=== PATIENT | female | born 1935 | race Caucasian/White ===

== ENCOUNTER 2019-01-01 11:07 | Emergency (ER) | payer MEDICARE, OTHER ==
[~2019-01-01] VITALS: Ht 154.9 cm; Wt 113.6 kg
--- NOTE | 2019-01-01 11:49 | ED General ---
General Chief Complaint: Trauma-Non Activation Stated Complaint: FALL Nursing Triage Note: Right back/rib pain, right leg pain. Nursing Sepsis Screen: No Definite Risk History of Present Illness Date Seen by Provider: Jan 01, 2019 Time Seen by Provider: 11:45 Initial Comments Patient presenting to the emergency department for evaluation of a fall. She has extensive medical history including dementia CHF diabetes and just moved here 2 weeks ago from [place]. She was living with another daughter in the area and then for unclear reason she was relocated here. This morning she was f ound on the floor covered in her own urine and was unable to get up on her own. Family was able to get her to the shower and then they decided to bring her here. She uses a walker to ambulate however family is saying that her weakness is more significant in her right lower extremity and this is something new in onset they first noted this morning when they found her. Her last known well would be sometime yesterday. I'm not completely convinced that this is new onset weakness that she is weak in her bilateral lower extremities and can barely hold either one of them up off the bed for more than one second. She lives by herself at this time and I asked patient if she feels safe and she says yes and I asked family if this is a reasonable plan and they think they can take care of her but they cannot take care of her in this condition currently. Allergies and Home Medications Allergies Coded Allergies: No Known Drug Allergies (Unverified , 01/01/19) Patient Home Medication List Home Medication List Reviewed: Yes Review of Systems Review of Systems Constitutional: no symptoms reported EENTM: no symptoms reported Respiratory: no symptoms reported Cardiovascular: no symptoms reported Gastrointestinal: no symptoms reported Genitourinary: no symptoms reported Musculoskeletal: back pain, joint pain Skin: no symptoms reported Psychiatric/Neurological: No Symptoms Reported All Other Systems Reviewed Negative Unless Noted: Yes Past Cfplivc-Zyfdqj-Zmkquy Hx Patient Social History Alcohol Use: Denies Use Recreational Drug Use: No Smoking Status: Never a Smoker 2nd Hand Smoke Exposure: No Recent Foreign Travel: No Contact w/Someone Who Travel: No Recent Infectious Disease Expo: No Recent Hopitalizations: No Physical Abuse: No Sexual Abuse: No Mistreated: No Fear: No Seasonal Allergies Seasonal Allergies: No Past Medical History Surgeries: Yes Defibrillator, Pacemaker Respiratory: No Cardiac: Yes Chronic Edema/Swelling Neurological: Yes Dementia Genitourinary: Yes (CKD stage 3) Kidney Stones, Renal Failure Gastrointestinal: Yes Diverticulosis Musculoskeletal: Yes (osteoarthritis, DJD right hip) Endocrine: Yes Diabetes, Non-Insulin dep HEENT: No Cancer: No Psychosocial: No Integumentary: No Physical Exam Vital Signs Vital Signs - First Documented Capillary Refill : Less Than 3 Seconds Height, Weight, BMI Height: '" Weight: lbs. oz. kg; 47.00 BMI Method: General Appearance: Chronically ill HEENT: PERRL/EOMI Neck: Supple, Tender Midline Respiratory: No Respiratory Distress Cardiovascular: Regular Rate, Rhythm Gastrointestinal: Non Tender, Soft Rectal: Deferred Back: Vertebral Tenderness (thoracic and lumbar region) Extremity: Normal Capillary Refill Neurologic/Psychiatric: Alert, Disoriented, Other (right lower extremity may be slightly weaker than the left however she cannot hold either lower extremity up off the bed for more than one second.) Skin: Warm/Dry Progress/Results/Core Measures Suspected Sepsis Recent Fever Within 48 Hours: No Infection Criteria Present: None New/Unexplained Altered Menta: No Sepsis Screen: No Definite Risk SIRS Temperature: Pulse: 65 Respiratory Rate: 22 Laboratory Tests 01/01/19 11:37: White Blood Count 15.8H Blood Pressure 115 /52 Mean: 73 Laboratory Tests 01/01/19 11:37: Creatinine 1.27, INR Comment 1.0, Platelet Count 222, Total Bilirubin 1.0 Results/Orders Lab Results Laboratory Tests Test 01/01/19 11:37 01/01/19 12:30 Range/Units White Blood Count 15.8 H 4.3-11.0 10^3/uL Red Blood Count 4.71 4.35-5.85 10^6/uL Hemoglobin 13.9 11.5-16.0 G/DL Hematocrit 43 35-52 % Mean Corpuscular Volume 90 80-99 FL Mean Corpuscular Hemoglobin 30 25-34 PG Mean Corpuscular Hemoglobin Concent 33 32-36 G/DL Red Cell Distribution Width 13.3 10.0-14.5 % Platelet Count 222 130-400 10^3/uL Mean Platelet Volume 11.5 H 7.4-10.4 FL Neutrophils (%) (Auto) 84 H 42-75 % Lymphocytes (%) (Auto) 10 L 12-44 % Monocytes (%) (Auto) 5 0-12 % Eosinophils (%) (Auto) 0 0-10 % Basophils (%) (Auto) 1 0-10 % Neutrophils # (Auto) 13.2 H 1.8-7.8 X 10^3 Lymphocytes # (Auto) 1.6 1.0-4.0 X 10^3 Monocytes # (Auto) 0.8 0.0-1.0 X 10^3 Eosinophils # (Auto) 0.0 0.0-0.3 10^3/uL Basophils # (Auto) 0.1 0.0-0.1 10^3/uL Neutrophils % (Manual) 76 % Lymphocytes % (Manual) 12 % Monocytes % (Manual) 6 % Basophils % (Manual) 1 % Band Neutrophils 5 % Blood Morphology Comment NORMAL Prothrombin Time 13.6 12.2-14.7 SEC INR Comment 1.0 0.8-1.4 Activated Partial Thromboplast Time 25 24-35 SEC Sodium Level 139 135-145 MMOL/L Potassium Level 3.3 L 3.6-5.0 MMOL/L Chloride Level 96 L 98-107 MMOL/L Carbon Dioxide Level 26 21-32 MMOL/L Anion Gap 17 H 5-14 MMOL/L Blood Urea Nitrogen 25 H 7-18 MG/DL Creatinine 1.27 0.60-1.30 MG/DL Estimat Glomerular Filtration Rate 40 BUN/Creatinine Ratio 20 Glucose Level 228 H 70-105 MG/DL Calcium Level 8.9 8.5-10.1 MG/DL Corrected Calcium 8.9 8.5-10.1 MG/DL Magnesium Level 1.7 1.6-2.4 MG/DL Total Bilirubin 1.0 0.1-1.0 MG/DL Aspartate Amino Transf (AST/SGOT) 21 5-34 U/L Alanine Aminotransferase (ALT/SGPT) 14 0-55 U/L Alkaline Phosphatase 54 40-136 U/L Troponin I < 0.30 <0.30 NG/ML Pro-B-Type Natriuretic Peptide 90385.0 H <75.0 PG/ML Total Protein 6.8 6.4-8.2 GM/DL Albumin 4.0 3.2-4.5 GM/DL Urine Color YELLOW Urine Clarity CLOUDY Urine pH 7.0 5-9 Urine Specific [place] 1.025 H 1.016-1.022 Urine Protein 2+ H NEGATIVE Urine Glucose (UA) NEGATIVE NEGATIVE Urine Ketones NEGATIVE NEGATIVE Urine Nitrite NEGATIVE NEGATIVE Urine Bilirubin NEGATIVE NEGATIVE Urine Urobilinogen 0.2 NORMAL MG/DL Urine Leukocyte Esterase 3+ H NEGATIVE Urine RBC (Auto) 2+ H NEGATIVE Urine RBC 10-25 H /HPF Urine WBC >100 H /HPF Urine Squamous Epithelial Cells NONE /HPF Urine Crystals NONE /LPF Urine Bacteria LARGE H /HPF Urine Casts NONE /LPF Urine Mucus NEGATIVE /LPF Urine Culture Indicated YES My Orders Orders - GINO ALFRED DO Cbc With Automated Diff (01/01/19 11:21) Comprehensive Metabolic Panel (01/01/19 11:21) Magnesium (01/01/19 11:21) Partial Thromboplastin Time (01/01/19 11:21) Protime With Inr (01/01/19 11:21) Probnp Fs (01/01/19 11:21) Troponin I (01/01/19 11:21) Ua Culture If Indicated (01/01/19 11:21) Ekg Tracing (01/01/19 11:21) Knee 3 View Bilateral (01/01/19 11:21) Ankle 3 View Right (01/01/19 11:21) Ct Head/Cervical Spine Wo (01/01/19 11:21) Ct Thoracic/Lumbar Spine Wo (01/01/19 11:21) Pelvis/Sukhdev Hips 2 View (01/01/19 11:21) Manual Differential (01/01/19 11:37) Chest 1 View Ap/Pa Only (01/01/19 12:28) Urine Culture (01/01/19 12:30) Blood Culture (01/01/19 12:48) Lactic Acid Analyzer (01/01/19 12:48) Ceftriaxone For Iv Use (Rocephin For I (01/01/19 13:00) Creatine Kinase (01/01/19 12:57) Vital Signs/I&O 01/01/19 01/01/19 11:15 11:15 Temp 37.2 37.2 Pulse 65 65 Resp 22 22 B/P (MAP) 115/52 (73) 115/52 (73) Pulse Ox 93 93 O2 Delivery Room Air Room Air Capillary Refill : Less Than 3 Seconds Blood Pressure Mean: 73 Progress Note : Progress Note Patient is in quite poor health, on workup was found that she has leukocytosis with signs of a urinary tract infection. She is having some hallucinations of seeing cats tight years and other animals on the springer in the room. She technically does not meet sepsis criteria by Sirs however by Q sofa with her altered mental status she would meet sepsis criteria. On the other hand she does have underlying dementia and the surgery tract infection dismay making her mental status worse. Patient is nontoxic appearing and her vital signs are normal with her latest vital signs being heart rate of 60 and blood pressure of 126/74. She does not require pressors or aggressive fluids or treatment. She does have underlying congestive heart failure and I discussed aggressive fluids with family and they agreed with low volume resuscitation given high volumes could make her cardiac and pulmonary function worse. Blood cultures lactate and CPK are all ordered and she'll be started on Rocephin. I will replace her potassium. I looked at all for CT imaging and did not see any gross abnormalities however there is an issue with the radiology software and it cannot be sent to the radiologist and [place] at this time. I spoke to Dr. Gonzales given patient was going to establish at [facility] today and Dr. Gonzales is willing to accept patient [facility] as they have further geriatric psych and full capabilities there. She prefers to have the patient there as there is limited to no benefit available at [place]. Patient will be transferred in stable condition via EMS to [facility]. All questions answered to the best of my ability to her 3 family members that were present. Departure Impression Primary Impression: Acute encephalopathy Additional Impressions: UTI (urinary tract infection) General weakness Hypokalemia Leukocytosis Disposition: 02 XFER SHT-TRM HOSP Condition: Stable Departure-Patient Inst. Referrals: NO,LOCAL PHYSICIAN (PCP/Family) Primary Care Physician GINO ALFRED DO Jan 01, 2019 11:49
[2019-01-01 12:01] LABS: BASOPHILS % (AUTO) 1 % (0-10); EOSINOPHILS % (AUTO) 0 % (0-10); HEMATOCRIT 43 % (35-52); HEMOGLOBIN 13.9 G/DL (11.5-16.0); LYMPHOCYTES % (AUTO) 10 % (12-44); MEAN CORPUSCULAR HEMOGLOBIN 30 PG (25-34); MEAN CORPUSCULAR HGB CONC 33 G/DL (32-36); MEAN CORPUSCULAR VOLUME 90 FL (80-99); MEAN PLATELET VOLUME 11.5 FL (7.4-10.4); MONOCYTES % (AUTO) 5 % (0-12); NEUTROPHILS % (AUTO) 84 % (42-75); PLATELET COUNT 222 10^3/uL (130-400); RED CELL DISTRIBUTION WIDTH 13.3 % (10.0-14.5); WHITE BLOOD COUNT 15.8 10^3/uL (4.3-11.0)
[2019-01-01 12:02] LABS: BASOPHILS # (AUTO) 0.1 10^3/uL (0.0-0.1); LYMPHOCYTES # (AUTO) 1.6 X 10^3 (1.0-4.0); MONOCYTES # (AUTO) 0.8 X 10^3 (0.0-1.0); NEUTROPHILS # (AUTO) 13.2 X 10^3 (1.8-7.8)
[2019-01-01 12:08] LABS: BAND NEUTROPHILS 5 %; BASOPHILS % (MANUAL) 1 %; LYMPHOCYTES % (MANUAL) 12 %; MONOCYTES % (MANUAL) 6 %; NEUTROPHILS % (MANUAL) 76 %
[2019-01-01 12:09] LABS: PROTHROMBIN TIME PATIENT 13.6 SEC (12.2-14.7); RBC MORPH NORMAL
[2019-01-01 12:21] LABS: BUN/CREATININE RATIO 20; CALCIUM 8.9 MG/DL (8.5-10.1); CARBON DIOXIDE 26 MMOL/L (21-32); CHLORIDE 96 MMOL/L (98-107); CREATININE SERUM 1.27 MG/DL (0.60-1.30); GFR ESTIMATED 40; GLUCOSE 228 MG/DL (70-105); MAGNESIUM 1.7 MG/DL (1.6-2.4); POTASSIUM 3.3 MMOL/L (3.6-5.0); SODIUM 139 MMOL/L (135-145)
[2019-01-01 12:22] LABS: ALANINE AMINOTRANSFERASE 14 U/L (0-55); ALKALINE PHOSPHATASE 54 U/L (40-136); TOTAL PROTEIN 6.8 GM/DL (6.4-8.2)
--- NOTE | 2019-01-01 12:37 | Diagnostic Imaging Report ---
PATIENT HISTORY: Fall, bilateral knee pain. TECHNIQUE: Frontal, oblique, and lateral views of the bilateral knees. COMPARISON: None. FINDINGS: No acute fracture or dislocation is seen in the right knee. There is mild degenerative change in the medial compartment. There is enthesopathy at the patella. No joint effusion is seen. There is calcific atherosclerosis. No acute osseous abnormalities are seen in the left knee. There is mild degenerative change, and patellar enthesopathy. Soft tissue calcifications are seen in the subcutaneous fat at the anteromedial distal left thigh. There is calcific atherosclerosis. IMPRESSION: Mild degenerative changes in the bilateral knees with no acute osseous abnormalities seen. Dictated by: Dictated on workstation # [id number]
--- NOTE | 2019-01-01 12:38 | Diagnostic Imaging Report ---
PATIENT HISTORY: Fall, right ankle pain. TECHNIQUE: 3 views of the right ankle COMPARISON: None FINDINGS: No acute fractures seen in the right ankle. Alignment appears normal. Ankle mortise is symmetric. There are degenerative changes in the tibiotalar joint. There is a large plantar calcaneal enthesophyte. There is calcific atherosclerosis. Mild soft tissue swelling is seen about the right ankle. IMPRESSION: Degenerative changes in the right ankle with no acute osseous abnormality seen. Dictated by: Dictated on workstation # [id number]
--- NOTE | 2019-01-01 12:39 | Diagnostic Imaging Report ---
Indication: Fall. Time of exam: 11:38 AM AP view of the pelvis and multiple views of bilateral hips were obtained. Femoral acetabular alignment is normal bilaterally. There is superior joint space narrowing bilaterally consistent with degenerative change. Both femoral heads and necks are intact. The rami appear to be intact. SI joints and symphysis are non-widened. No fractures are seen. Impression: No acute bony abnormality is detected. Dictated by: Dictated on workstation # [id number]
[2019-01-01 12:45] LABS: BILIRUBIN,URINE NEGATIVE (NEGATIVE); CLARITY,URINE CLOUDY; COLOR,URINE YELLOW; GLUCOSE, URINE (UA) NEGATIVE (NEGATIVE); KETONES,URINE NEGATIVE (NEGATIVE); LEUKOCYTE ESTERASE ,URINE 3+ (NEGATIVE); NITRITE,URINE NEGATIVE (NEGATIVE); PROTEIN,URINE 2+ (NEGATIVE); UROBILINOGEN,URINE 0.2 MG/DL (NORMAL); WBC,URINE >100 /HPF
[2019-01-01 12:46] LABS: BACTERIA,URINE LARGE /HPF
--- NOTE | 2019-01-01 12:48 | Diagnostic Imaging Report ---
Indication: Fall. Time of exam: 12:20 PM No prior studies available for comparison. The heart is enlarged. Cardiac pacemaker is noted. Lungs are clear. No infiltrate or failure is detected. No effusion or pneumothorax is seen. Impression: Cardiomegaly. No acute feature is detected. Dictated by: Dictated on workstation # [id number]
[2019-01-01] MEDS ORDERED: cefTRIAXone FOR IV USE 2,000 MG in WATER (STERILE) FOR INJECTION 20 ML IV ONE (13:00)
--- NOTE | 2019-01-01 13:12 | Diagnostic Imaging Report ---
PROCEDURE: CT thoracic and lumbar spine without contrast. TECHNIQUE: Multiple contiguous axial images were obtained through the thoracic and lumbar spine without the use of intravenous contrast. Sagittal and coronal reformations were then performed. INDICATION: Fall. CT thoracic: Curvature and alignment of the thoracic spine is normal. Vertebral body heights are maintained. No acute compression fracture is detected. There is generalized degenerative disc disease with variable disc space narrowing and marginal spurring. IMPRESSION: Thoracic spondylosis. No acute bony abnormality is detected. CT lumbar spine: Curvature and alignment of the lumbar spine is normal. Vertebral body heights are maintained. No acute compression fracture is seen. Generalized degenerative disc disease with variable disc space narrowing and marginal spurring is noted. There is vacuum disc noted at L2-L3 and L4-L5 levels. Abdominal aorta and iliac vessels are heavily calcified but nonaneurysmal. IMPRESSION: Lumbar spondylosis. No acute bony abnormality is detected. Dictated by: Dictated on workstation # [id number]
[2019-01-01] MEDS ORDERED: KCL 20 MEQ TAB (K-DUR) PO ONE (13:15)
[2019-01-01] MEDS ORDERED: NS W/KCL 20 MEQ/L 1,000 ML IV SCH (13:15)
--- NOTE | 2019-01-01 13:17 | Diagnostic Imaging Report ---
CLINICAL INDICATION: Patient is status post fall. Patient with pain all over. EXAM: Head CT without IV contrast. Axial CT scan of the cervical spine with sagittal and coronal reformations. Auto Exposure Controls were utilized during the CT exam to meet ALARA standards for radiation dose reduction. COMPARISON: None. FINDINGS: Head CT: There is motion artifact which obscures portions of the brainstem, portion of the posterior fossa, and portion of the brain near the skull base. There is no evidence of acute cerebral infarct, intracranial hemorrhage, or gross mass effect. There is diffuse brain parenchymal volume loss. There are patchy and confluent areas of low-attenuation white matter changes involving both cerebral hemispheres, likely representing chronic small vessel ischemic disease. There is normal arita-white matter distinction. There is no significant midline shift or herniation. There is no evidence of hydrocephalus. The basal cisterns are unremarkable. The skull, extracranial soft tissue, and orbits are unremarkable. The paranasal sinuses are unremarkable. Temporal bones show no significant abnormality. Cervical spine: There is no acute cervical spine fracture. There is grade 1 anterolisthesis of C3 on C4 and C4 on C5 with no pars defect seen and is likely related to degenerative changes. There are cervical spine vertebral body spurs and facet arthropathy. The facet arthropathy is most pronounced at the C2-C3, C3-C4, and C4-C5 levels. There is no significant bony central canal narrowing. There is moderate multilevel bony neural foramen narrowing from uncinate spurs. There is no significant neck soft tissue abnormality. Visualized upper lung carlson are clear. IMPRESSION: 1: There is no CT evidence of acute intracranial process, intracranial hemorrhage, or skull fracture. 2: There is no acute cervical spine fracture. 3: There is multilevel cervical spine degenerative disease including grade 1 anterolisthesis of C3 on C4 and C4 on C5. Dictated by: Dictated on workstation # [id number]
[2019-01-01] MEDS ORDERED: NS IV 1000 ML 1,000 ML ONE (13:27)
[2019-01-01] MEDS ORDERED: POTASSIUM CL 10MEQ/50ML IVPB 50 ML IV ONE ×2 (13:27→14:00)
[2019-01-01] MEDS ORDERED: HYDROcodone/APAP 5 MG/325 MG (LORTAB) TAB PO ONE (13:30)
[2019-01-01] MEDS ORDERED: NS IV 1000 ML 1,000 ML IV SCH (14:00)
[2019-01-01 14:35] VITALS: BP 129/67
== END 2019-01-01 14:35 | disposition short-term general hospital (02) ==
LOC: ER FS 11:10
DX: G93.49 Other encephalopathy (principal); N39.0 Urinary tract infection, site not specified; R53.1 Weakness; E87.6 Hypokalemia; D72.829 Elevated white blood cell count, unspecified; F03.90 Unspecified dementia, unspecified severity, without behavioral disturbance, psychotic disturbance, mood disturbance, and anxiety; I50.9 Heart failure, unspecified; E11.22 Type 2 diabetes mellitus with diabetic chronic kidney disease; N18.3 Chronic kidney disease, stage 3 (moderate); M16.11 Unilateral primary osteoarthritis, right hip; Z87.19 Personal history of other diseases of the digestive system; Z95.810 Presence of automatic (implantable) cardiac defibrillator; W19.XXXA Unspecified fall, initial encounter
CPT/HCPCS: 36415; 51701; 70450; 71045; 72125; 72128; 72131; 73521; 73610; 80053; 81000; 82550; 83605; 83735; 83880; 84484; 85007; 85027; 85610; 85730; 87040; 87077; 87088; 87186; 93005

== ENCOUNTER → 2019-01-14 | Outpatient (CLI) | payer MEDICARE ==
[2019-01-14 15:17] LABS: ALBUMIN 3.8 GM/DL (3.2-4.5); BILIRUBIN,TOTAL 0.4 MG/DL (0.1-1.0); CALCIUM 8.7 MG/DL (8.5-10.1); CREATININE SERUM 1.32 MG/DL (0.60-1.30); POTASSIUM 4.3 MMOL/L (3.6-5.0); TOTAL PROTEIN 6.5 GM/DL (6.4-8.2)
[2019-01-14 15:18] LABS: HEMATOCRIT 42 % (35-52); HEMOGLOBIN 13.1 G/DL (11.5-16.0); MEAN CORPUSCULAR HEMOGLOBIN 30 PG (25-34); MEAN CORPUSCULAR VOLUME 95 FL (80-99); WHITE BLOOD COUNT 11.3 10^3/uL (4.3-11.0)
[2019-01-14 15:19] LABS: MEAN CORPUSCULAR HGB CONC 31 G/DL (32-36); MEAN PLATELET VOLUME 11.4 FL (7.4-10.4); PLATELET COUNT 210 10^3/uL (130-400); RED CELL DISTRIBUTION WIDTH 13.9 % (10.0-14.5)
[2019-01-14 15:21] LABS: BASOPHILS % (AUTO) 1 % (0-10); EOSINOPHILS % (AUTO) 4 % (0-10); LYMPHOCYTES % (AUTO) 21 % (12-44); MONOCYTES % (AUTO) 5 % (0-12); NEUTROPHILS % (AUTO) 69 % (42-75)
[2019-01-14 15:22] LABS: BASOPHILS # (AUTO) 0.1 10^3/uL (0.0-0.1); EOSINOPHILS # (AUTO) 0.4 10^3/uL (0.0-0.3); LYMPHOCYTES # (AUTO) 2.4 X 10^3 (1.0-4.0); MONOCYTES # (AUTO) 0.6 X 10^3 (0.0-1.0); NEUTROPHILS # (AUTO) 7.8 X 10^3 (1.8-7.8)
== END ==
LOC: LAB FS 13:47
PROVIDERS: ATTEND Nurse Practitioner Family
DX: E11.9 Type 2 diabetes mellitus without complications (principal); E03.9 Hypothyroidism, unspecified; Z87.440 Personal history of urinary (tract) infections; Z86.19 Personal history of other infectious and parasitic diseases
CPT/HCPCS: 36415; 80053; 83036; 84443; 85025

== ENCOUNTER → 2019-04-24 | Outpatient (CLI) | payer MEDICARE, MEDICAID ==
--- NOTE | 2019-04-24 11:01 | Diagnostic Imaging Report ---
INDICATION: Fall with left shoulder pain. EXAMINATION: AP and transscapular views of the left shoulder were obtained. FINDINGS: No acute fracture or acute bony abnormality is seen. There is degenerative change of the AC joint and glenohumeral joint. IMPRESSION: Degenerative findings in the left shoulder with no acute abnormality seen. Dictated by: Dictated on workstation # [id number]
== END ==
LOC: RAD FS 10:37
PROVIDERS: ATTEND Nurse Practitioner Family
DX: M19.012 Primary osteoarthritis, left shoulder (principal); W19.XXXA Unspecified fall, initial encounter
CPT/HCPCS: 73030

== ENCOUNTER 2019-09-28 12:59 | Emergency (ER) | payer MEDICARE, MEDICAID ==
[~2019-09-28] VITALS: Ht 154 cm; Wt 114.0 kg
--- OUTSIDE RECORDS SUMMARY | 2019-09-28 13:04 | XMS REPORT | Continuity of Care Document ---
Author Organization Unknown Address Unknown Phone Unavailable Allergies Active Description Code Type Severity Reaction Onset Reported/Identified Relationship to Patient Clinical Status Yes NO KNOWN DRUG ALLERGIES UNKNOWN UNKNOWN Yes No Known Drug Allergies [id number] Drug Allergy Unknown N/A 01/01/2019 Medications Medication Packaging Start Date St op Date Route Dosage Sig NORMAL SALINE 1000CC IV BAG INJ 0.9 % (NS 1000CC IV BAG) ml 01/01/2019 01/16/2019 CONTINUOUSEVERY 0 Hour INSULIN ASPART PEN INJ 100 U NITS/CC (NOVOLOG FLEXPEN) 01/01/2019 01/31/2019 ACHS&0630,1130,1630,2100 ACETAMINOPHEN ORAL TABLET 325mg(Tylenol) MG 01/01/2019 01/31/2019 PRN EVERY 6 Hour CARVEDILOL TAB 25 MG (COREG) MG 01/01/2019 01/08/2019 BID&0800,2000 Docusate sodium 100mg oral capsule (COLACE ) MG 01/01/2019 01/31/2019 PRN BID SIMVASTATIN TAB 10 MG (ZOCOR) MG 01/01/2019 01/07/2019 QPM&2000 POTASSIUM CHLORIDE TAB 10 MEQ (K-DUR) MEQ 01/01/2019 01/01/2019 ONCE&2013 MELATONIN TAB 3 MG (MELATONIN) MG 01/01/2019 01/07/2019 PRN QHS ONDANSETRON VIAL INJ 4 MG/2CC (ZOFRAN 2CC VIAL) MG 01/01/2019 01/08/2019 PRN Q4H HYDROCODONE/APAP 5MG/325MG T AB 5 MG/325MG (SHEILA-TAB 5/325) TAB 01/01/2019 01/11/2019 PRN Q4H GUAIFENESIN - DM LIQ (ROBITUSSIN DM) MLS 01/01/2019 01/08/2019 PRN Q4H ALPRAZOLAM TAB 0.25 MG (XANAX) MG 01/01/2019 01/11/2019 PRN Q6H CLONIDINE TAB 0.1 MG (CATAPRES) MG 01/01/2019 01/08/2019 PRN Q6H CALCIUM CARBONATE TAB 500 MG (TUMS) MG 01/01/2019 01/08/2019 PRN Q6H DIPHENHYDRAMINE CAP 25 MG (BENADRYL) MG 01/01/2019 01/08/2019 PRN Q6H HEPARIN 5,000 units/cc 1cc vial UNITS 01/02/2019 01/11/2019 Q8H&0600,1400,2200 GLIMEPIRIDE TAB 2 MG (AMARYL) MG 01/02/2019 01/08/2019 Daily&0900 BISACODYL TAB 5 MG (DULCOLAX) MG 01/02/2019 01/08/2019 PRN Daily POLYETHYLENE GLYCOL POWDER U D PWD (MIRALAX 17GM UNIT DOSE PAKS) gm 01/02/2019 01/08/2019 Daily&0900 CITALOPRAM TAB 10 MG (CELEXA) MG 01/02/2019 01/08/2019 Daily&0900 BISACODYL SUPPOS 10 MG (DULCOLAX SUPPOS) MG 01/02/2019 01/08/2019 PRN Daily LEVOTHYROXINE TAB 112 MCG (SYNTHROID) MCG 01/02/2019 01/08/2019 Daily&0900 CEFTRIAXONE PREMIX IV BAG IV 1 GM/50CC (ROCEPHIN PREMIX IV BAG) GM 01/02/2019 01/08/2019 Daily&0900 Potassium Chloride in water IV piggyback 20mEQ Premix IV MEQ 01/03/2019 01/03/2019 ONCE&0736 FERROUS SULFATE TAB 325 MG (FEOSOL) MG 01/03/2019 01/10/2019 Q72H&0800 SENNA CONC/DOCUSATE TAB (SENOKOT S) TAB 01/03/2019 02/01/2019 BID&0800,2000 Potassium Chloride in water IV piggyback 20mEQ Premix IV MEQ 01/03/2019 01/03/2019 ONCE&0900 Problems Date Dx Coded Attending Type Code Diagnosis Diagnosed By 01/01/2019 GINO ALFRED DO Ot D72.829 ELEVATED WHITE BLOOD CELL COUNT, UNSPECI 01/01/2019 GINO ALFRED DO Ot 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 01/01/2019 GINO ALFRED DO Ot E87 .6 HYPOKALEMIA 01/01/2019 GINO ALFRED DO Ot F03.90 UNSPECIFIED DEMENTIA WITHOUT BEHAVIORAL 01/01/2019 GINO ALFRED DO Ot G93.49 OTHER ENCEPHALOPATHY 01/01/2019 GINO ALFRED DO Ot I50 .9 HEART FAILURE, UNSPECIFIED 01/01/2019 GINO ALFRED DO Ot M16.11 UNILATERAL PRIMARY OSTEOARTHRITIS, RIGHT 01/01/2019 GINO ALFRED DO, Ot N18 .3 CHRONIC KIDNEY DISEASE, STAGE 3 (MODERAT 01/01/2019 GINO ALFRED DO, Ot N39 .0 URINARY TRACT INFECTION, SITE NOT SPECIF 01/01/2019 GINO ALFRED DO Ot R53 .1 WEAKNESS 01/01/2019 GINO ALFRED DO, Ot W19.XXXA UNSPECIFIED FALL, INITIAL ENCOUNTER 01/01/2019 GINO ALFRED DO, Ot Z87.19 PERSONAL HISTORY OF OTHER DISEASES OF TH 01/01/2019 GINO ALFRED DO Ot Z95.810 PRESENCE OF AUTOMATIC (IMPLANTABLE) CARD 01/02/2019 Latha Gonzales W 599.0 URINARY TRACT INFECTION, SITE NOT SPECIFIED 01/02/2019 Hima Gonzalesi W N39.0 URINARY TRACT INFECTION, SITE NOT SPECIFIED 01/02/2019 Hima Gonzalesi W 288.60 LEUKOCYTOSIS, UNSPECIFIED 01/02/2019 Hima Gonzalesi W 599.0 URINARY TRACT INFECTION, SITE NOT SPECIFIED 01/02/2019 Hima Gonzalesi W D72.829 ELEVATED WHITE BLOOD CELL COUNT, UNSPECIFIED 01/02/2019 Latha Gonzales W N39.0 URINARY TRACT INFECTION, SITE NOT SPECIFIED 01/02/2019 Christian Latha W 276.8 HYPOPOTASSEMIA 01/02/2019 Christian Latha W 288.60 LEUKOCYTOSIS, UNSPECIFIED 01/02/2019 Christian Latha W 599.0 URINARY TRACT INFECTION, SITE NOT SPECIFIED 01/02/2019 Hima Gonzalesi W D72.829 ELEVATED WHITE BLOOD CELL COUNT, UNSPECIFIED 01/02/2019 Hima Gonzalesi W E87.6 HYPOKALEMIA 01/02/2019 Hima Gonzalesi W N39.0 URINARY TRACT INFECTION, SITE NOT SPECIFIED 01/03/2019 GINO ALFRED DO Ot D72.829 ELEVATED WHITE BLOOD CELL COUNT, UNSPECI 01/03/2019 GINO ALFRED DO, Ot 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 01/03/2019 GINO ALFRED DO, Ot E87 .6 HYPOKALEMIA 01/03/2019 GINO ALFRED DO, Ot F03.90 UNSPECIFIED DEMENTIA WITHOUT BEHAVIORAL 01/03/2019 GINO ALFRED DO, Ot G93.49 OTHER ENCEPHALOPATHY 01/03/2019 GINO ALFRED DO, Ot I50 .9 HEART FAILURE, UNSPECIFIED 01/03/2019 GINO ALFRED DO, Ot M16.11 UNILATERAL PRIMARY OSTEOARTHRITIS, RIGHT 01/03/2019 GINO ALFRED DO, Ot N18 .3 CHRONIC KIDNEY DISEASE, STAGE 3 (MODERAT 01/03/2019 GINO ALFRED DO, Ot N39 .0 URINARY TRACT INFECTION, SITE NOT SPECIF 01/03/2019 GINO ALFRED DO, Ot R53 .1 WEAKNESS 01/03/2019 GINO ALFRED DO, Ot W19.XXXA UNSPECIFIED FALL, INITIAL ENCOUNTER 01/03/2019 GINO ALFRED DO, Ot Z87.19 PERSONAL HISTORY OF OTHER DISEASES OF TH 01/03/2019 GINO ALFRED DO, Ot Z95.810 PRESENCE OF AUTOMATIC (IMPLANTABLE) CARD 01/04/2019 Latha Gonzales W 038.9 UNSPECIFIED SEPTICEMIA 01/04/2019 Latha Gonzales W 041.49 OTHER AND UNSPECIFIED ESCHERICHIA COLI [E. COLI] INFECTION IN CONDITIONS CLASSIFIED ELSEWHERE AND OF UNSPECIFIED SITE 01/04/2019 Latha Gonzales W 244.9 UNSPECIFIED HYPOTHYROIDISM 01/04/2019 Latha Gonzales W 250.00 DIABETES MELLITUS WITHOUT MENTION OF COMPLICATION, TYPE II OR UNSPECIFIED TYPE, NOT STATED UNCONTROLLED 01/04/2019 Latha Gonzales W 272.4 OTHER AND UNSPECIFIED HYPERLIPIDEMIA 01/04/2019 Latha Gonzales W 276.8 HYPOPOTASSEMIA 01/04/2019 Latha Gonzales W 288.60 LEUKOCYTOSIS, UNSPECIFIED 01/04/2019 Latha Gonzales W 428.9 HEART FAILURE, UNSPECIFIED 01/04/2019 Latha Gonzales W 585.9 CHRONIC KIDNEY DISEASE, UNSPECIFIED 01/04/2019 Latha Gonzales W 599.0 URINARY TRACT INFECTION, SITE NOT SPECIFIED 01/04/2019 Latha Gonzales 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 01/04/2019 Latha Gonzales W A41.9 SEPSIS, UNSPECIFIED ORGANISM 01/04/2019 Latha Gonzales W B96.20 UNSP ESCHERICHIA COLI THE CAUSE OF DISEASES CLASSD ELSWHR 01/04/2019 Latha Gonzales W D72.829 ELEVATED WHITE BLOOD CELL COUNT, UNSPECIFIED 01/04/2019 Latha Gonzales W E03.9 HYPOTHYROIDISM, UNSPECIFIED 01/04/2019 Latha Gonzales W E11.9 TYPE 2 DIABETES MELLITUS WITHOUT COMPLICATIONS 01/04/2019 Latha Gonzales W E78.5 HYPERLIPIDEMIA, UNSPECIFIED 01/04/2019 Latha Gonzales W E87.6 HYPOKALEMIA 01/04/2019 Latha Gonzales W I50.9 HEART FAILURE, UNSPECIFIED 01/04/2019 Latha Gonzales W N18.9 CHRONIC KIDNEY DISEASE, UNSPECIFIED 01/04/2019 Latha Gonzales W N39.0 URINARY TRACT INFECTION, SITE NOT SPECIFIED 01/04/2019 Latha Gonzales W T79.6XXA TRAUMATIC ISCHEMIA OF MUSCLE, INITIAL ENCOUNTER 04/24/2019 O'DELL, MELLO K [employer] D[facility]ER Ot E03 .9 HYPOTHYROIDISM, UNSPECIFIED 04/24/2019 O'DELL, MELLO K [employer] DRIER Ot E11 .9 TYPE 2 DIABETES MELLITUS WITHOUT COMPLIC 04/24/2019 O'DELL, MELLO K [employer] DRIER Ot Z86.19 PERSONAL HISTORY OF OTHER INFECTIOUS AND 04/24/2019 O'DELL, MELLO K CL[employer] DRIER Ot Z87.440 PERSONAL HISTORY OF URINARY (TRACT) INFE 05/02/2019 O'DELL, MELLO K [employer] DRIER Ot E03 .9 HYPOTHYROIDISM, UNSPECIFIED 05/02/2019 O'DELL, MELLO K [employer] DRIER Ot E11 .9 TYPE 2 DIABETES MELLITUS WITHOUT COMPLIC 05/02/2019 O'DELL, MELLO K CLOTH DRIER Ot Z86.19 PERSONAL HISTORY OF OTHER INFECTIOUS AND 05/02/2019 O'DELL, MELLO K CLOTH DRIER Ot Z87.440 PERSONAL HISTORY OF URINARY (TRACT) INFE 08/26/2019 O'DELL, MELLO K CL[employer] DRIER Ot E03 .9 HYPOTHYROIDISM, UNSPECIFIED 08/26/2019 O'DELL, MELLO K CL[employer] DRIER Ot E11 .9 TYPE 2 DIABETES MELLITUS WITHOUT COMPLIC 08/26/2019 MELLO JARA Nae [employer] [employer] Ot Z86.19 PERSONAL HISTORY OF OTHER INFECTIOUS AND 08/26/2019 MELLO JARA APRN Ot Z87.440 PERSONAL HISTORY OF URINARY (TRACT) INFE 08/26/2019 LUIS ARMANDO WOLFF [employer] Ot M19.012 PRIMARY OSTEOARTHRITIS, LEFT SHOULDER 08/26/2019 LUIS ARMANDO WOLFF [employer] Ot W19.XXXA UNSPECIFIED FALL, INITIAL ENCOUNTER 08/27/2019 LUIS ARMANDO WOLFF [employer] Ot M19.012 PRIMARY OSTEOARTHRITIS, LEFT SHOULDER 08/27/2019 LUIS ARMANDO WOLFF [employer] Ot W19.XXXA UNSPECIFIED FALL, INITIAL ENCOUNTER Procedures There is no data. Results Test Result Range Complete blood count (CBC) with automate d white blood cell (WBC) differential - 01/01/19 11:37 Blood leukocytes automated count (number/volume) 15.8 10*3/uL 4.3-11.0 Blood erythrocytes automated count (number/volume) 4.71 10*6/uL 4.35-5.85 Venous blood hemoglobin measurement (mass/volume) 13.9 g/dL 11.5-16.0 Blood hematocrit (volume fraction) 43 % 35-52 Automated erythrocyte mean corpuscular volume 90 [ foz_us] 80-99 Automated erythrocyte mean corpuscular h emoglobin (mass per erythrocyte) 30 pg 25-34 Automated erythrocyte mean corpuscular h emoglobin concentration measurement (mass/volume) 33 g/dL 32-36 Automated erythrocyte distribution width ratio 13. 3 % 10.0- 14.5 Automated blood platelet count (count/volume) 222 10*3/uL 130-400 Automated blood platelet mean volume measurement 11.5 [foz_us] 7.4-10.4 Automated blood neutrophils/100 leukocytes 84 % 42-75 Automated blood lymphocytes/100 leukocytes 10 % 12-44 Blood monocytes/100 leukocytes 5 % 0-12 Automated blood eosinophils/100 leukocytes 0 % 0-10 Automated blood basophils/100 leukocytes 1 % 0-10 Blood neutrophils automated count (number/volume) 13.2 10*3 1.8-7.8 Blood lymphocytes automated count (number/volume) 1.6 10*3 1.0-4.0 Blood monocytes automated count (number/volume) 0. 8 10*3 0.0-1.0 Automated eosinophil count 0.0 10*3/uL 0 .0-0.3 Automated blood basophil count (count/volume) 0.1 10*3/uL 0.0-0.1 Manual absolute plasma cell count - 12/16 11/02 11:37 Blood monocytes/100 leukocytes 6 % NRG Manual blood segmented neutrophils/100 leukocytes 76 % NRG Blood band neutrophils/100 leukocytes 5 % NRG Manual blood lymphocytes/100 leukocytes 12 % NRG Manual blood basophils/100 leukocytes 1 % NRG Blood erythrocyte morphology finding identification NORMAL NRG PT panel in platelet poor plasma by coag ulation assay - 01/01/19 11:37 Prothrombin time (PT) in platelet poor plasma by coagu lation assay 13.6 s 12.2-14.7 INR in platelet poor plasma or blood by coagulation as say 1.0 0.8-1.4 Activated partial thromboplastin time (a PTT) in platelet poor plasma bycoagulation assay - 01/01/19 11:37 Activated partial thromboplastin time (a PTT) in platelet poor plasma bycoagulation assay 25 s 24-35 Comprehensive metabolic panel - 01/01/19 11:37 Serum or plasma sodium measurement (moles/volume) 139 mmol/L 135-145 Serum or plasma potassium measurement (moles/volume) 3.3 mmol/L 3.6-5.0 Serum or plasma chloride measurement (moles/volume) 96 mmol/L 98-107 Carbon dioxide 26 mmol/L 21-32 Serum or plasma anion gap determination (moles/volume) 17 mmol/L 5-14 Serum or plasma urea nitrogen measurement (mass/volume ) 25 mg/dL 7-18 Serum or plasma creatinine measurement (mass/volume) 1.27 mg/dL 0.60-1.30 Serum or plasma urea nitrogen/creatinine mass ratio 20 NRG Serum or plasma creatinine measurement w ith calculation of estimated glomerular filtration rate 40 NRG Serum or plasma glucose measurement (mass/volume) 228 mg/dL 70-105 Serum or plasma calcium measurement (mass/volume) 8.9 mg/dL 8.5-10.1 Serum or plasma total bilirubin measurement (mass/volu me) 1.0 mg/dL 0.1-1.0 Serum or plasma alkaline phosphatase chance surement (enzymatic activity/volume) 54 U/L 40-136 Serum or plasma aspartate aminotransfera se measurement (enzymatic activity/volume) 21 U/L 5-34 Serum or plasma alanine aminotransferase measurement (enzymatic activity/volume) 14 U/L 0-55 Serum or plasma protein measurement (mass/volume) 6.8 g/dL 6.4-8.2 Serum or plasma albumin measurement (mass/volume) 4.0 g/dL 3.2-4.5 CALCIUM CORRECTED 8.9 mg/dL 8.5-10.1 Magnesium - 01/01/19 11:37 Magnesium 1.7 mg/dL 1.6-2.4 Serum or plasma troponin i.cardiac measu rement (mass/volume) - 01/01/19 11:37 Serum or plasma troponin i.cardiac measurement (mass/v olume) < ng/mL <0.30 PROBNP FS - 01/01/19 11:37 [place] [address].0 pg/mL <75.0 Serum or plasma creatine kinase measurem ent (enzymatic activity/volume) - 01/01/19 11:37 Serum or plasma creatine kinase measurem ent (enzymatic activity/volume) 334 U/L 29-168 Complete urinalysis with reflex to cultu re - 01/01/19 12:30 Urine color determination YELLOW NRG Urine clarity determination CLOUDY NR G Urine pH measurement by test strip 7.0 5-9 Specific gravity of urine by test strip 1.025 1.016-1.022 Urine protein assay by test strip, semi-quantitative 2+ NEGATIVE Urine glucose detection by automated test strip NE GATIVE NEGATIVE Erythrocytes detection in urine sediment by light micr oscopy 2+ NEGATIVE Urine ketones detection by automated test strip NE GATIVE NEGATIVE Urine nitrite detection by test strip NEGATIVE NEGATIVE Urine total bilirubin detection by test strip NEGA TIVE NEGATIVE Urine urobilinogen measurement by automated test strip (mass/volume) 0.2 mg/dL NORMAL Urine leukocyte esterase detection by dipstick 3+ NEGATIVE Automated urine sediment erythrocyte cou nt by microscopy (number/high power field) [HPF] NRG Automated urine sediment leukocyte count by microscopy (number/high power field) > [HPF] NRG Bacteria detection in urine sediment by light microsco py LARGE NRG Squamous epithelial cells detection in u rine sediment by light microscopy NONE NRG Crystals detection in urine sediment by light microsco py NONE NRG Casts detection in urine sediment by light microscopy NONE NRG Mucus detection in urine sediment by light microscopy NEGATIVE NRG Complete urinalysis with reflex to culture YES NRG Bacterial urine culture - 01/01/19 12:30 Bacterial urine culture [id number] NRG COLONY COUNT >100,000/ML NRG FTX;REPORTABLE SUSCEPTIBILITY REPORTED 01-03-19, 13 46 NRG Dirithromycin susceptibility test by dis k diffusion - 01/01/19 12:30 Gentamicin susceptibility test by minimum inhibitory c oncentration <= NRG Trimethoprim/sulfamethoxazole susceptibi lity test by minimum inhibitoryconcentration <= NRG Levofloxacin susceptibility test by minimum inhibitory concentration <= NRG Ampicillin susceptibility test by minimum inhibitory c oncentration <= NRG Cefazolin susceptibility test by minimum inhibitory co ncentration 2 NRG Ceftriaxone susceptibility test by minimum inhibitory concentration <= NRG Ciprofloxacin susceptibility test by minimum inhibitor y concentration <= NRG Meropenem susceptibility test by minimum inhibitory co ncentration <= NRG Nitrofurantoin susceptibility test by mi nimum inhibitory concentration <= NRG Amoxicillin and clavulanate potassium susc WESLEY <= NRG Blood lactic acid measurement (moles/vol ume) - 01/01/19 13:00 Blood lactic acid measurement (moles/volume) 1.91 mmol/L 0.50-2.00 Bacterial blood culture - 01/01/19 13:00 Bacterial blood culture NG NRG Bacterial blood culture - 01/01/19 13:15 Bacterial blood culture NG NRG Creatine Kinase - 01/02/19 05:59 CK 204 U/L 26-174 Comprehensive Metabolic Panel - 01/03/19 05:35 Albumin 3.7 g/dL 3.6-5.1 ALP 45 U/L 35-130 ALT 15 U/L 6-45 Anion Gap 16 6-14 AST 13 U/L 2-40 BUN 40 mg/dL 5-25 Calcium 8.4 mg/dL 8.3-10.4 Chloride 104 mmol/L 95-114 CO2 25 mEq/L 22-33 Creat 2.06 mg/dL 0.50-1.50 eGFR 23 mL/min/1.73m2 >59 Globulin 2.3 g/dL 2.3-3.5 Glucose 83 mg/dL 70-110 Osmo 299 280-295 Potassium 4.4 mmol/L 3.5-5.3 Sodium 141 mmol/L 134-148 TBil 0.4 mg/dL 0.2-1.2 TP 6.0 g/dL 6.0-8.3 Comprehensive Metabolic Panel - 01/04/19 05:15 Albumin 3.5 g/dL 3.6-5.1 ALP 44 U/L 35-130 ALT 16 U/L 6-45 Anion Gap 16 6-14 AST 14 U/L 2-40 BUN 42 mg/dL 5-25 Calcium 8.1 mg/dL 8.3-10.4 Chloride 107 mmol/L 95-114 CO2 26 mEq/L 22-33 Creat 1.70 mg/dL 0.50-1.50 eGFR 29 mL/min/1.73m2 >59 Globulin 2.1 g/dL 2.3-3.5 Glucose 64 mg/dL 70-110 Osmo 305 280-295 Potassium 4.8 mmol/L 3.5-5.3 Sodium 144 mmol/L 134-148 TBil 0.3 mg/dL 0.2-1.2 TP 5.6 g/dL 6.0-8.3 Comprehensive metabolic panel - 01/14/19 14:22 Serum or plasma sodium measurement (moles/volume) 142 mmol/L 135-145 Serum or plasma potassium measurement (moles/volume) 4.3 mmol/L 3.6-5.0 Serum or plasma chloride measurement (moles/volume) 105 mmol/L 98-107 Carbon dioxide 25 mmol/L 21-32 Serum or plasma anion gap determination (moles/volume) 12 mmol/L 5-14 Serum or plasma urea nitrogen measurement (mass/volume ) 23 mg/dL 7-18 Serum or plasma creatinine measurement (mass/volume) 1.32 mg/dL 0.60-1.30 Serum or plasma urea nitrogen/creatinine mass ratio 17 NRG Serum or plasma creatinine measurement w ith calculation of estimated glomerular filtration rate 39 NRG Serum or plasma glucose measurement (mass/volume) 77 mg/dL 70-105 Serum or plasma calcium measurement (mass/volume) 8.7 mg/dL 8.5-10.1 Serum or plasma total bilirubin measurement (mass/volu me) 0.4 mg/dL 0.1-1.0 Serum or plasma alkaline phosphatase chance surement (enzymatic activity/volume) 45 U/L 40-136 Serum or plasma aspartate aminotransfera se measurement (enzymatic activity/volume) 17 U/L 5-34 Serum or plasma alanine aminotransferase measurement (enzymatic activity/volume) 14 U/L 0-55 Serum or plasma protein measurement (mass/volume) 6.5 g/dL 6.4-8.2 Serum or plasma albumin measurement (mass/volume) 3.8 g/dL 3.2-4.5 CALCIUM CORRECTED 8.9 mg/dL 8.5-10.1 Complete blood count (CBC) with automate d white blood cell (WBC) differential - 01/14/19 14:22 Blood leukocytes automated count (number/volume) 11.3 10*3/uL 4.3-11.0 Blood erythrocytes automated count (number/volume) 4.41 10*6/uL 4.35-5.85 Venous blood hemoglobin measurement (mass/volume) 13.1 g/dL 11.5-16.0 Blood hematocrit (volume fraction) 42 % 35-52 Automated erythrocyte mean corpuscular volume 95 [ foz_us] 80-99 Automated erythrocyte mean corpuscular h emoglobin (mass per erythrocyte) 30 pg 25-34 Automated erythrocyte mean corpuscular h emoglobin concentration measurement (mass/volume) 31 g/dL 32-36 Automated erythrocyte distribution width ratio 13. 9 % 10.0- 14.5 Automated blood platelet count (count/volume) 210 10*3/uL 130-400 Automated blood platelet mean volume measurement 11.4 [foz_us] 7.4-10.4 Automated blood neutrophils/100 leukocytes 69 % 42-75 Automated blood lymphocytes/100 leukocytes 21 % 12-44 Blood monocytes/100 leukocytes 5 % 0-12 Automated blood eosinophils/100 leukocytes 4 % 0-10 Automated blood basophils/100 leukocytes 1 % 0-10 Blood neutrophils automated count (number/volume) 7.8 10*3 1.8-7.8 Blood lymphocytes automated count (number/volume) 2.4 10*3 1.0-4.0 Blood monocytes automated count (number/volume) 0. 6 10*3 0.0-1.0 Automated eosinophil count 0.4 10*3/uL 0 .0-0.3 Automated blood basophil count (count/volume) 0.1 10*3/uL 0.0-0.1 Hemoglobin A1c measurement - 01/14/19 14 :22 Blood hemoglobin A1C measurement (mass/volume) 6.0 % 4.0-5.6 MEAN BLOOD GLUCOSE 126 % <=126 THYROID STIMULATING HORMONE - 01/14/19 1 4:37 THYROID STIMULATING HORMONE 8.13 u[iU]/mL 0.35-4.94 A1C - 01/15/19 10:21 HEMOGLOBIN A1c TNP % of total Hgb NRG TSH - 04/24/19 10:45 TSH 3.91 mIU/L 0.40-4.50 CULTURE, URINE - 04/24/19 10:45 CULTURE, URINE, ROUTINE SEE NOTE NRG A1C - 04/24/19 10:45 HEMOGLOBIN A1c 6.4 % of total Hgb <5.7 Encounters ACCT No. Visit Date/Time Discharge Status Pt. Type Provider Facility Loc./Unit Complaint [id number] 01/01/2019 14:23:00 01/04/2019 10:20: 00 DIS Inpatient Latha [facility] enter ICU [id number] 01/01/2019 14:46:20 Document Registration [id number] 09/26/2019 10:00:00 ACT Outpatient LUIS RAMANDO [facility] [id number] 04/24/2019 09:20:00 Document Registration [id number] 01/15/2019 09:40:00 Document Registration [id number] 04/24/2019 10:37:00 020 23:59:59 CLS Outpatient LUIS ARMANDO WOLFF [facility] RAD FS M25.512 [id number] 01/14/2019 13:47:00 019 23:59:59 CLS Outpatient MELLO JARA [facility] LAB FS Z86.19 Z87.440 E03.9 E1 1.9 [id number] 01/01/2019 11:10:00 019 14:35:00 DIS Emergency GINO ALFRED DO [facility] ER FS FALL [id number] 01/02/2019 07:45:00 Document Registration
[2019-09-28 13:38] LABS: BASOPHILS # (AUTO) 0.1 10^3/uL (0.0-0.1); BASOPHILS % (AUTO) 1 % (0-10); EOSINOPHILS # (AUTO) 0.3 10^3/uL (0.0-0.3); EOSINOPHILS % (AUTO) 4 % (0-10); HEMATOCRIT 39 % (35-52); HEMOGLOBIN 12.4 G/DL (11.5-16.0); LYMPHOCYTES # (AUTO) 2.3 X 10^3 (1.0-4.0); LYMPHOCYTES % (AUTO) 26 % (12-44); MEAN CORPUSCULAR HEMOGLOBIN 29 PG (25-34); MEAN CORPUSCULAR HGB CONC 32 G/DL (32-36); MEAN CORPUSCULAR VOLUME 93 FL (80-99); MEAN PLATELET VOLUME 10.9 FL (7.4-10.4); MONOCYTES # (AUTO) 0.6 X 10^3 (0.0-1.0); MONOCYTES % (AUTO) 7 % (0-12); NEUTROPHILS # (AUTO) 5.5 X 10^3 (1.8-7.8); NEUTROPHILS % (AUTO) 62 % (42-75); PLATELET COUNT 203 10^3/uL (130-400); RED CELL DISTRIBUTION WIDTH 13.9 % (10.0-14.5); WHITE BLOOD COUNT 8.9 10^3/uL (4.3-11.0)
[2019-09-28 13:49] LABS: BUN/CREATININE RATIO 13; CARBON DIOXIDE 27 MMOL/L (21-32); CHLORIDE 106 MMOL/L (98-107); CREATININE SERUM 1.13 MG/DL (0.60-1.30); GFR ESTIMATED 46; SODIUM 145 MMOL/L (135-145)
[2019-09-28 13:50] LABS: ALANINE AMINOTRANSFERASE 9 U/L (0-55); ALBUMIN 3.7 GM/DL (3.2-4.5); ALKALINE PHOSPHATASE 57 U/L (40-136); BILIRUBIN,TOTAL 0.4 MG/DL (0.1-1.0); CALCIUM 8.8 MG/DL (8.5-10.1); GLUCOSE 143 MG/DL (70-105); LIPASE 28 U/L (8-78); TOTAL PROTEIN 6.3 GM/DL (6.4-8.2)
--- NOTE | 2019-09-28 13:55 | Diagnostic Imaging Report ---
INDICATION: Cough and congestion. TIME OF EXAM: 1:40 PM COMPARISON is made with prior chest from 01/01/2019. Heart is enlarged but stable. Cardiac defibrillator remains in place. Lungs are clear. There is no evidence of infiltrate or failure. There is no effusion or pneumothorax. IMPRESSION: No acute cardiopulmonary process is detected. Dictated by: Dictated on workstation # [id number]
[2019-09-28] MEDS ORDERED: FUROSEMIDE 40 MG/4 ML INJ (LASIX) IVP ONE (15:30)
--- NOTE | 2019-09-28 15:35 | ED Chest Pain ---
General Chief Complaint: Chest Pain Stated Complaint: CHEST PAIN,SOA Nursing Triage Note: Patient here for chest pain and shortness of breath x 2 days. States she also has a cough. Denies hx of lung or heart problems. Nursing Sepsis Screen: No Definite Risk Source: patient, family History of Present Illness Date Seen by Provider: Sep 28, 2019 Time Seen by Provider: 13:00 Initial Comments Patient is at 84-year-old female with history of cardiac arrhythmia, pacemaker placement presents with dyspnea for the past several days with increased shortness of breath this morning. Shortness breath is most pronounced in the morning. Patient also reports mild right-sided chest heaviness but denies chest pain. Patient's daughter reports occasional cough. No fever chills, abdominal pain, nausea vomiting increased leg pain or swelling. No history of CAD, CHF her valvular heart disease. No other acute symptoms or complaints. History is limited due to the patient's dementia. Timing/Duration: 1 week Severity/Quality: mild, other Location: other Radiation: no radiation Activities at Onset: none Prior CP/Workup: stress test, other Associated Symptoms: denies symptoms Allergies and Home Medications Allergies Coded Allergies: No Known Drug Allergies (Unverified , 01/01/19) Patient Home Medication List Home Medication List Reviewed: Yes Review of Systems Review of Systems Constitutional: see HPI EENTM: See HPI Respiratory: See HPI Cardiovascular: See HPI Gastrointestinal: See HPI Genitourinary: See HPI Musculoskeletal: see HPI Skin: see HPI Psychiatric/Neurological: See HPI Endocrine: See HPI Past Nllcxqp-Dxyfid-Mxfmvq Hx Patient Social History Alcohol Use: Denies Use Recreational Drug Use: No Smoking Status: Never a Smoker 2nd Hand Smoke Exposure: No Recent Foreign Travel: No Contact w/Someone Who Travel: No Recent Infectious Disease Expo: No Recent Hopitalizations: No Seasonal Allergies Seasonal Allergies: No Past Medical History Surgeries: Yes Defibrillator, Pacemaker Respiratory: No Cardiac: Yes Chronic Edema/Swelling Neurological: Yes Dementia Genitourinary: Yes (CKD stage 3) Kidney Stones, Renal Failure Gastrointestinal: Yes Diverticulosis Musculoskeletal: Yes (osteoarthritis, DJD right hip) Endocrine: Yes Diabetes, Non-Insulin dep HEENT: No Cancer: No Psychosocial: No Integumentary: No Physical Exam Vital Signs Vital Signs - First Documented 09/28/19 13:08 Temp 35.9 Pulse 63 Resp 16 B/P (MAP) 135/72 (93) Pulse Ox 96 Capillary Refill : Less Than 3 Seconds Height, Weight, BMI Height: '" Weight: lbs. oz. kg; 48.00 BMI Method: General Appearance: No Apparent Distress HEENT: PERRL/EOMI, Normal ENT Inspection, Pharynx Normal Neck: Full Range of Motion, Normal Inspection, Supple Respiratory: Chest Non Tender, Lungs Clear Cardiovascular: Regular Rate, Rhythm Gastrointestinal: Non Tender, Soft Extremity: Normal Capillary Refill, Non Tender, No Calf Tenderness; No Swelling Neurologic/Psychiatric: Alert, Other (oriented to person and place) Focused Exam Sepsis Stage: Ruled Out Respiratory: Lungs Clear, Normal Breath Sounds Cardiovascular: Regular Rate, Rhythm Skin: normal color Progress/Results/Core Measures Results/Orders Lab Results Laboratory Tests Test 09/28/19 13:10 Range/Units White Blood Count 8.9 4.3-11.0 10^3/uL Red Blood Count 4.21 L 4.35-5.85 10^6/uL Hemoglobin 12.4 11.5-16.0 G/DL Hematocrit 39 35-52 % Mean Corpuscular Volume 93 80-99 FL Mean Corpuscular Hemoglobin 29 25-34 PG Mean Corpuscular Hemoglobin Concent 32 32-36 G/DL Red Cell Distribution Width 13.9 10.0-14.5 % Platelet Count 203 130-400 10^3/uL Mean Platelet Volume 10.9 H 7.4-10.4 FL Neutrophils (%) (Auto) 62 42-75 % Lymphocytes (%) (Auto) 26 12-44 % Monocytes (%) (Auto) 7 0-12 % Eosinophils (%) (Auto) 4 0-10 % Basophils (%) (Auto) 1 0-10 % Neutrophils # (Auto) 5.5 1.8-7.8 X 10^3 Lymphocytes # (Auto) 2.3 1.0-4.0 X 10^3 Monocytes # (Auto) 0.6 0.0-1.0 X 10^3 Eosinophils # (Auto) 0.3 0.0-0.3 10^3/uL Basophils # (Auto) 0.1 0.0-0.1 10^3/uL Sodium Level 145 135-145 MMOL/L Potassium Level 4.0 3.6-5.0 MMOL/L Chloride Level 106 98-107 MMOL/L Carbon Dioxide Level 27 21-32 MMOL/L Anion Gap 12 5-14 MMOL/L Blood Urea Nitrogen 15 7-18 MG/DL Creatinine 1.13 0.60-1.30 MG/DL Estimat Glomerular Filtration Rate 46 BUN/Creatinine Ratio 13 Glucose Level 143 H 70-105 MG/DL Calcium Level 8.8 8.5-10.1 MG/DL Corrected Calcium 9.0 8.5-10.1 MG/DL Total Bilirubin 0.4 0.1-1.0 MG/DL Aspartate Amino Transf (AST/SGOT) 14 5-34 U/L Alanine Aminotransferase (ALT/SGPT) 9 0-55 U/L Alkaline Phosphatase 57 40-136 U/L Troponin I < 0.30 <0.30 NG/ML Pro-B-Type Natriuretic Peptide 5661.0 H <75.0 PG/ML Total Protein 6.3 L 6.4-8.2 GM/DL Albumin 3.7 3.2-4.5 GM/DL Lipase 28 8-78 U/L My Orders Orders - CODY CERNA DO Cbc With Automated Diff (09/28/19 13:27) Comprehensive Metabolic Panel (09/28/19 13:27) Troponin I Fs (09/28/19 13:27) Chest Pa/Lat (2 View) (09/28/19 13:27) Ekg Tracing (09/28/19 13:27) Lipase (09/28/19 13:27) Probnp Fs (09/28/19 14:42) Furosemide Injection (Lasix Injection) (09/28/19 15:30) Medications Given in ED Current Medications Medications Dose Ordered Sig/Kaylynn Route Start Time Stop Time Status Last Admin Dose Admin Furosemide 40 mg ONCE ONCE IVP 09/28/19 15:30 09/28/19 15:31 DC 09/28/19 15:42 40 MG Vital Signs/I&O 09/28/19 13:08 Temp 35.9 Pulse 63 Resp 16 B/P (MAP) 135/72 (93) Pulse Ox 96 Blood Pressure Mean: 93 Departure Communication (Admissions) EKG: Paced Chest x-ray: No acute disease per radiology report Labs, EKG, chest x-ray reviewed. Patient's symptoms likely related to CHF/volume overload. Denies shortness of breath and chest discomfort the emergency department. Troponin negative. IV Lasix given with substantial diuresis. Hospital admission offered for further cardiac evaluation to patient and patient's daughter who both decline further cardiac workup at this time. Rather, the patient prefers to follow up with PCP and local evaporator operator. Return precautions reviewed. Patient discharged home in her requestPatient and daughter verbalize understanding and agreement with discharge instructions prior to departure. Impression Primary Impression: Dyspnea Additional Impressions: Nonspecific chest pain Congestive heart failure Disposition: HOME, SELF-CARE Condition: Stable Departure-Patient Inst. Referrals: [facility]/ (PCP) Primary Care Physician LUIS ARMANDO WOLFF APRN (Family) Primary Care Physician Patient Instructions: Chest Pain, Heart Failure, Adult, Shortness of Breath (Dyspnea) Add. Discharge Instructions: Nicol was evaluated in the emergency department for chest pain and shortness of breath. Chest x-ray EKG and lab performed. Symptoms and lab findings were most consistent with congestive heart failure. This will require additional outpatient workup and medication therapy. Please take daily water pill and follow-up with your PCP and/or evaporator operator next week without fail. Return to the ED if new or worsening symptoms All discharge instructions reviewed with patient and/or family. Voiced understanding. Scripts Furosemide (Lasix) 20 Mg Tablet 20 MG PO DAILY, #10 TAB Prov: CODY CERNA DO 09/28/19 CODY CERNA DO Sep 28, 2019 15:35
[2019-09-28] MEDS ORDERED: FURO-125 PO (16:26)
[2019-09-28 17:08] VITALS: BP 152/55
== END 2019-09-28 17:08 | disposition home or self-care (01) ==
LOC: EDUNIT# 12:59 → ER FS 13:00
DX: I50.9 Heart failure, unspecified (principal); R07.89 Other chest pain; E11.22 Type 2 diabetes mellitus with diabetic chronic kidney disease; N18.3 Chronic kidney disease, stage 3 (moderate); Z95.810 Presence of automatic (implantable) cardiac defibrillator
CPT/HCPCS: 36415; 71046; 80053; 83690; 83880; 84484; 85025; 93005

== ENCOUNTER → 2020-02-13 | Outpatient (CLI) | payer MEDICARE, MEDICAID ==
[~2020-02-13] MED LIST: CARV25TA PO; CINN500C2 PO; CITA10TA7 PO; COLO500C PO; CRV25T PO; DONE5TAB30 PO; FERR324T PO; FURO-125 PO; FURO20TA4 BC; GLIP5TAB13 PO; LEVO125T6 PO; POTA20TA15 PO; QUET25TA73 PO; ROSU10TA28 PO; SACU1TAB7 PO; SPIR25TA5 PO
[2020-02-13 14:34] LABS: ALBUMIN 3.7 GM/DL (3.2-4.5); BILIRUBIN,TOTAL 0.3 MG/DL (0.1-1.0); CALCIUM 8.9 MG/DL (8.5-10.1); CREATININE SERUM 1.96 MG/DL (0.60-1.30); TOTAL PROTEIN 6.8 GM/DL (6.4-8.2)
[2020-02-13 14:36] LABS: POTASSIUM 6.4 MMOL/L (3.6-5.0)
== END ==
LOC: LAB FS 13:05
PROVIDERS: ATTEND Nurse Practitioner Family
DX: E87.5 Hyperkalemia (principal)
CPT/HCPCS: 36415; 80053

== ENCOUNTER 2020-02-15 11:22 | Inpatient (IN) | payer MEDICARE, MEDICAID ==
[~2020-02-15] VITALS: Ht 157.5 cm; Wt 109.4 kg
[~2020-02-15 11:22] MED LIST changes: -CARV25TA PO; -CINN500C2 PO; -CITA10TA7 PO; -COLO500C PO; -CRV25T PO; -DONE5TAB30 PO; -FERR324T PO; -FURO20TA4 BC; -GLIP5TAB13 PO; -LEVO125T6 PO; -POTA20TA15 PO; -QUET25TA73 PO; -ROSU10TA28 PO; -SACU1TAB7 PO; -SPIR25TA5 PO
[2020-02-15] MEDS ORDERED: NS IV 500 ML 500 ML IV ONE (11:43)
[2020-02-15] MEDS ORDERED: ACETAMINOPHEN 325 MG TABLET PO ONE (11:45)
[2020-02-15 12:11] LABS: BASOPHILS % (AUTO) 1 % (0-10); EOSINOPHILS % (AUTO) 4 % (0-10); HEMATOCRIT 40 % (35-52); HEMOGLOBIN 12.9 G/DL (11.5-16.0); LYMPHOCYTES % (AUTO) 23 % (12-44); MEAN CORPUSCULAR HEMOGLOBIN 30 PG (25-34); MEAN CORPUSCULAR HGB CONC 32 G/DL (32-36); MEAN CORPUSCULAR VOLUME 93 FL (80-99); MEAN PLATELET VOLUME 11.5 FL (7.4-10.4); MONOCYTES % (AUTO) 6 % (0-12); NEUTROPHILS % (AUTO) 66 % (42-75); PLATELET COUNT 228 10^3/uL (130-400); WHITE BLOOD COUNT 10.5 10^3/uL (4.3-11.0)
[2020-02-15 12:12] LABS: BASOPHILS # (AUTO) 0.1 10^3/uL (0.0-0.1); EOSINOPHILS # (AUTO) 0.4 10^3/uL (0.0-0.3); LYMPHOCYTES # (AUTO) 2.4 X 10^3 (1.0-4.0); MONOCYTES # (AUTO) 0.7 X 10^3 (0.0-1.0)
--- NOTE | 2020-02-15 12:21 | Diagnostic Imaging Report ---
EXAM: CHEST 1 VIEW AP/PA ONLY INDICATION: Weakness. COMPARISON: Chest radiograph 09/28/2019. FINDINGS: Normal heart size and central pulmonary vascularity. Calcified aorta. AICD. No focal pulmonary consolidation. No pleural effusion or pneumothorax. No acute osseous findings. IMPRESSION: No acute cardiopulmonary findings. Dictated by: Dictated on workstation # [id number]
[2020-02-15 12:35] LABS: SODIUM 139 MMOL/L (135-145)
[2020-02-15 12:37] LABS: CARBON DIOXIDE 20 MMOL/L (21-32); CHLORIDE 110 MMOL/L (98-107); POTASSIUM 7.2 MMOL/L (3.6-5.0)
[2020-02-15 12:38] LABS: ALANINE AMINOTRANSFERASE 13 U/L (0-55); ALBUMIN 3.8 GM/DL (3.2-4.5); ALKALINE PHOSPHATASE 58 U/L (40-136); BILIRUBIN,TOTAL 0.3 MG/DL (0.1-1.0); BUN/CREATININE RATIO 42; CALCIUM 9.3 MG/DL (8.5-10.1); CREATININE SERUM 1.66 MG/DL (0.60-1.30); GFR ESTIMATED 30; GLUCOSE 78 MG/DL (70-105); TOTAL PROTEIN 6.9 GM/DL (6.4-8.2)
--- NOTE | 2020-02-15 12:48 | ED GI ---
General Chief Complaint: Abdominal/GI Problems Stated Complaint: DIARRHEA;WEAKNESS; LOW BP Nursing Triage Note: Patient's daughter reports patient has had diarrhea for approximately 2 months, states patient has seen her PCP and has stool studies pending. Daughter states patient is weaker than normal and had a low blood pressure reading this morning, 80s/40s. Sepsis Screen: No Definite Risk History of Present Illness Date Seen by Provider: Feb 15, 2020 Time Seen by Provider: 11:10 Initial Comments The patient is an 84-year-old female with a history of hypertension, hyperlipidemia, pacemaker/ICD in place for unclear indication, some degree of heart failure without echocardiogram on file, on daily Lasix, spironolactone and Entresto, qgh-veskptg-mwyyeqidm diabetes, hypothyroidism on levothyroxine, some degree of chronic kidney disease (unclear baseline), moderate dementia. She still lives at home alone but it sounds as though she has a great deal of daily support for all ADLs from her family. Oniel has had diarrhea, about 5 episodes per day, over the entire last couple of months. She has seen her primary care physician multiple times for this issue and most recently just a few days ago, comprehensive stool studies were sent from the PCPs office. Results on those are not known as yet. In association with her diarrhea she has had generalized fatigue which family state they're concerned has been worsening. Labs were checked here a few days ago on an outpatient basis; creatinine was 1.9 and potassium was mildly elevated. Labs were otherwise reassuring. Oniel presents for re-evaluation of the above issues and also for assessment of a reported low blood pressure obtained at home by her daughter prior to arrival. Blood pressure is normal here in the emergency department and other vital signs are quite reassuring. The patient is pleasant and cheerful and in absolutely no acute distress and denies pain anywhere. She specifically denies fevers, nausea or vomiting, upper respiratory congestion/rhinorrhea, cough, shortness of breath or chest pain of any kind, focal abdominal pain of any kind, flank pain, back pain, dysuria or hematuria. Allergies and Home Medications Allergies Coded Allergies: No Known Drug Allergies (Unverified , 01/01/19) Home Medications Furosemide 20 Mg Tablet, 20 MG PO DAILY Prescribed by: CODY CERNA on 09/28/19 1161 Patient Home Medication List Home Medication List Reviewed: Yes Review of Systems Review of Systems Constitutional: see HPI All Other Systems Reviewed Negative Unless Noted: Yes (Negative excepted noted.) Past Ixnjsyn-Qpzooo-Liopne Hx Past Med/Social Hx: Reviewed Nursing Past Med/Soc Hx Patient Social History Alcohol Use: Denies Use Recreational Drug Use: No Smoking Status: Never a Smoker 2nd Hand Smoke Exposure: No Recent Foreign Travel: No Contact w/Someone Who Travel: No Recent Infectious Disease Expo: No Recent Hopitalizations: No Physical Abuse: No Sexual Abuse: No Mistreated: No Fear: No Seasonal Allergies Seasonal Allergies: No Past Medical History Surgeries: Yes Defibrillator, Pacemaker Respiratory: No Cardiac: Yes Chronic Edema/Swelling Neurological: Yes Dementia Genitourinary: Yes (CKD stage 3) Kidney Stones, Renal Failure Gastrointestinal: Yes Diverticulosis Musculoskeletal: Yes (osteoarthritis, DJD right hip) Endocrine: Yes Diabetes, Non-Insulin dep HEENT: No Cancer: No Psychosocial: No Integumentary: No Family Medical History Reviewed Nursing Family Hx Physical Exam Vital Signs Vital Signs - First Documented 02/15/20 11:30 Temp 36.9 Pulse 61 Resp 18 B/P (MAP) 148/57 (87) Pulse Ox 97 O2 Delivery Room Air Capillary Refill : Less Than 3 Seconds Height/Weight/BMI Height: '" Weight: lbs. oz. kg; 48.00 BMI Method: General Appearance: no apparent distress Exam Comments This is an elderly female appearing nontoxic and in no acute distress. Head is normocephalic and atraumatic. Neck is supple and nontender. Oropharynx is moist. Lungs are clear to auscultation at all stations. There is a normal S1 and S2 without rubs or gallops and capillary refill is appropriate, less than 2 seconds globally. No significant dependent peripheral edema noted distally. No calf tenderness or swelling bilaterally. Abdomen is soft, nontender nondistended. Skin is warm and dry without cyanosis, clubbing or edema. Psychiatrically, the patient demonstrates appropriate mood and affect and is alert. Progress/Results/Core Measures Results/Orders Lab Results Laboratory Tests Test 02/15/20 12:00 02/15/20 12:21 02/15/20 12:45 Range/Units White Blood Count 10.5 4.3-11.0 10^3/uL Red Blood Count 4.27 L 4.35-5.85 10^6/uL Hemoglobin 12.9 11.5-16.0 G/DL Hematocrit 40 35-52 % Mean Corpuscular Volume 93 80-99 FL Mean Corpuscular Hemoglobin 30 25-34 PG Mean Corpuscular Hemoglobin Concent 32 32-36 G/DL Red Cell Distribution Width 13.4 10.0-14.5 % Platelet Count 228 130-400 10^3/uL Mean Platelet Volume 11.5 H 7.4-10.4 FL Immature Granulocyte % (Auto) 0 % Neutrophils (%) (Auto) 66 42-75 % Lymphocytes (%) (Auto) 23 12-44 % Monocytes (%) (Auto) 6 0-12 % Eosinophils (%) (Auto) 4 0-10 % Basophils (%) (Auto) 1 0-10 % Neutrophils # (Auto) 7.0 1.8-7.8 X 10^3 Lymphocytes # (Auto) 2.4 1.0-4.0 X 10^3 Monocytes # (Auto) 0.7 0.0-1.0 X 10^3 Eosinophils # (Auto) 0.4 H 0.0-0.3 10^3/uL Basophils # (Auto) 0.1 0.0-0.1 10^3/uL Immature Granulocyte # (Auto) 0.0 0.0-0.1 10^3/uL Sodium Level 139 140 135-145 MMOL/L Potassium Level 7.2 *H 7.0 *H 3.6-5.0 MMOL/L Chloride Level 110 H 112 H 98-107 MMOL/L Carbon Dioxide Level 20 L 20 L 21-32 MMOL/L Anion Gap 9 8 5-14 MMOL/L Blood Urea Nitrogen 69 H 66 H 7-18 MG/DL Creatinine 1.66 H 1.70 H 0.60-1.30 MG/DL Estimat Glomerular Filtration Rate 30 29 BUN/Creatinine Ratio 42 39 Glucose Level 78 52 *L 70-105 MG/DL Calcium Level 9.3 9.2 8.5-10.1 MG/DL Corrected Calcium 9.5 8.5-10.1 MG/DL Total Bilirubin 0.3 0.1-1.0 MG/DL Aspartate Amino Transf (AST/SGOT) 18 5-34 U/L Alanine Aminotransferase (ALT/SGPT) 13 0-55 U/L Alkaline Phosphatase 58 40-136 U/L Troponin I < 0.30 <0.30 NG/ML Total Protein 6.9 6.4-8.2 GM/DL Albumin 3.8 3.2-4.5 GM/DL Urine Color YELLOW Urine Clarity CLEAR Urine pH 5.5 5-9 Urine Specific [place] 1.020 1.016-1.022 Urine Protein NEGATIVE NEGATIVE Urine Glucose (UA) NEGATIVE NEGATIVE Urine Ketones NEGATIVE NEGATIVE Urine Nitrite NEGATIVE NEGATIVE Urine Bilirubin NEGATIVE NEGATIVE Urine Urobilinogen 0.2 < = 1.0 MG/DL Urine Leukocyte Esterase NEGATIVE NEGATIVE Urine RBC (Auto) NEGATIVE NEGATIVE Urine RBC NONE /HPF Urine WBC 0-2 /HPF Urine Squamous Epithelial Cells 5-10 /HPF Urine Crystals NONE /LPF Urine Bacteria TRACE /HPF Urine Casts NONE /LPF Urine Mucus NEGATIVE /LPF Urine Culture Indicated NO Magnesium Level 2.7 H 1.6-2.4 MG/DL My Orders Orders - RAFAEL LEE MD Cbc With Automated Diff (02/15/20 11:43) Comprehensive Metabolic Panel (02/15/20 11:43) Troponin I Fs (02/15/20 11:43) Ekg Tracing (02/15/20 11:43) Chest 1 View Ap/Pa Only (02/15/20 11:43) Ua Culture If Indicated (02/15/20 11:43) Ed Iv/Invasive Line Start (02/15/20 11:43) Ns Iv 500 Ml (Sodium Chloride 0.9%) (02/15/20 11:43) Acetaminophen Tablet/Caplet (Tylenol T (02/15/20 11:45) Basic Metabolic Panel (02/15/20 12:40) Calcium Gluconate 10% Inj (Calcium Glu (02/15/20 13:10) Calcium Gluconate 10% Inj (Calcium Glu (02/15/20 13:15) D50w (Emergency) Syringe (Dextrose 50% 5 (02/15/20 13:15) D50w (Emergency) Syringe (Dextrose 50% 5 (02/15/20 13:15) Insulin (Regular) Human (Novolin R (Per (02/15/20 13:15) Ns Iv 1000 Ml (Sodium Chloride 0.9%) (02/15/20 13:10) Magnesium (02/15/20 13:14) Medications Given in ED Current Medications Medications Dose Ordered Sig/Kaylynn Route Start Time Stop Time Status Last Admin Dose Admin Acetaminophen 650 mg ONCE ONCE PO 02/15/20 11:45 02/15/20 11:47 DC 02/15/20 12:24 650 MG Dextrose 50 ml ONCE ONCE IV 02/15/20 13:15 02/15/20 13:16 DC 02/15/20 13:37 50 ML Dextrose 50 ml ONCE ONCE IV 02/15/20 13:15 02/15/20 13:16 DC 02/15/20 13:38 50 ML Sodium Chloride 500 ml @ 0 mls/hr Q0M ONCE IV 02/15/20 11:43 02/15/20 11:47 DC 02/15/20 12:24 500 MLS/HR Vital Signs/I&O 02/15/20 11:30 Temp 36.9 Pulse 61 Resp 18 B/P (MAP) 148/57 (87) Pulse Ox 97 O2 Delivery Room Air Blood Pressure Mean: 87 Progress Progress Note : Time: 12:49 Progress Note 84-year-old female, well-appearing, who presents for reevaluation of chronic diarrhea 2 months for which stool studies have recently, and appropriately, been sent. No results back on these as yet. The patient has been having worsening fatigue per family and there is concern about a low blood pressure measured at home prior to arrival. Blood pressure and other vital signs are reassuring here. Clinical examination is highly reassuring. We will place IV and give a small fluid bolus and we will check labs and EKG and chest x-ray and will then reevaluate. Given benign abdominal examination without any pain elicitable on palpation anywhere, we will defer advanced imaging of the abdomen and pelvis for now. 1330: Workup as above is remarkable for renal insufficiency with elevated BUN/creatinine and creatinine, slightly improved versus a few days ago. Unfortunately, patient does have significant hyperkalemia with a serum potassium level above 7; rechecked a basic metabolic panel to ensure that this was not artifact from hemolysis and it appears not to be. No acute EKG changes are noted. Vital signs remain reassuring and the patient is resting comfortably upon reassessment. Have treated hyperkalemia with additional IV fluids, 2 A of calcium gluconate, 2 A of dextrose and 10 units of IV insulin. We'll proceed with transfer to [facility] at this time for step down admission; Dr. Gonzales graciously accepts. EKG : Comment AV paced rhythm, rate 60, no acute ST elevation or depression, EP inter pretation. Diagnostic Imaging Comments NAME: ONIEL LONGORIA MED REC#: [id number] PT STATUS: REG ER : 1935 PHYSICIAN: RAFAEL LEE MD ADMIT DATE: 02/15/20/ER FS Draft Date of Exam:02/15/20 CHEST 1 VIEW AP/PA ONLY EXAM: CHEST 1 VIEW AP/PA ONLY INDICATION: Weakness. COMPARISON: Chest radiograph 09/28/2019. FINDINGS: Normal heart size and central pulmonary vascularity. Calcified aorta. AICD. No focal pulmonary consolidation. No pleural effusion or pneumothorax. No acute osseous findings. IMPRESSION: No acute cardiopulmonary findings. Dictated on workstation # [id number] Dict: 02/15/20 1219 Trans: 02/15/20 1221 CV [id number] Interpreted by: LEANDRO HERNANDEZ MD Electronically signed by: Critical Care Note Critical Care Total Time (minutes) 37 Departure Impression Primary Impression: Acute hyperkalemia Additional Impressions: Acute on chronic renal insufficiency Chronic diarrhea Fatigue Qualified Codes: R53.83 - Other fatigue Disposition: 09 ADMITTED INPATIENT Condition: Stable Departure-Patient Inst. Referrals: [facility] (PCP) Primary Care Physician LUIS ARMANDO WOLFF APRN (Family) Primary Care Physician RAFAEL LEE MD Feb 15, 2020 12:48
[2020-02-15 13:03] LABS: COLOR,URINE YELLOW
[2020-02-15 13:04] LABS: BACTERIA,URINE TRACE /HPF; BILIRUBIN,URINE NEGATIVE (NEGATIVE); CLARITY,URINE CLEAR; GLUCOSE, URINE (UA) NEGATIVE (NEGATIVE); KETONES,URINE NEGATIVE (NEGATIVE); LEUKOCYTE ESTERASE ,URINE NEGATIVE (NEGATIVE); NITRITE,URINE NEGATIVE (NEGATIVE); PH,URINE 5.5 (5-9); PROTEIN,URINE NEGATIVE (NEGATIVE); WBC,URINE 0-2 /HPF
[2020-02-15 13:10] LABS: CREATININE SERUM 1.7 MG/DL (0.60-1.30)
[2020-02-15] MEDS ORDERED: NS IV 1000 ML 1,000 ML IV SCH ×2 (13:10→16:03)
[2020-02-15] MEDS ORDERED: CALCIUM GLUCONATE 10% INJ 4.65 MEQ in NS (IVPB) 50 ML IV STA (13:10)
[2020-02-15 13:11] LABS: CALCIUM 9.2 MG/DL (8.5-10.1)
[2020-02-15] MEDS ORDERED: inSUlin (REGULAR) HUMAN 1 UNIT/0.01 ML (CHARGE PER UNIT) IV ONE (13:15)
[2020-02-15] MEDS ORDERED: DEXTROSE 50% 50 ML (IMS) SYR IV ONE ×2 (13:15)
[2020-02-15] MEDS ORDERED: CALCIUM GLUCONATE 10% INJ 4.65 MEQ in NS (IVPB) 50 ML IV ONE (13:15)
--- NOTE | 2020-02-15 16:10 | NUR ---
ONIEL LONGORIA admitted to room 415, with an admitting diagnosis of HYPERKALEMIA, on from [place] via , accompanied by .ONIEL LONGORIA introduced to surroundings, call light, bed controls, phone, TV, temperature control, lights, meal times, smoking policy, visitor policy, side rail policy, bathrooms and showers. Patient Rights given to patient in the handbook.ONIEL LONGORIA verbalizes understanding that [facility] is not responsible for the loss or damage to any personal effects or valuables that are kept in the patients posession during their hospitalization. ONIEL LONGORIA verbalizes understanding of Interdisciplinary Patient Education. Patient and/or family were informed about the Rapid Response Team and its purpose.
[2020-02-15] MEDS ORDERED: MELATONIN 3 MG TABLET PO PRN ×2 (16:15→16:30)
[2020-02-15] MEDS ORDERED: ONDANSETRON 4 MG/2 ML (SDV) Z0FRAN IVP PRN ×2 (16:15→16:30)
[2020-02-15] MEDS ORDERED: ALPRAZolam 0.25 MG (XANAX) TAB PO PRN ×2 (16:15→16:30)
[2020-02-15] MEDS ORDERED: ENOXAPARIN 40 MG/0.4 ML (LOVENOX) SYR SC SCH (16:15)
[2020-02-15] MEDS ORDERED: HYDROcodone/APAP 5 MG/325 MG (LORTAB) TAB PO PRN ×2 (16:15→16:30)
[2020-02-15] MEDS ORDERED: diphenhydrAMINE 25 MG TAB (BENADRYL) PO PRN ×2 (16:15→16:30)
[2020-02-15] MEDS ORDERED: SOD POLYSTERENE 15 GM/60 ML (KAYEXALATE) UNIT DOSE PO ONE ×2 (16:15→16:42)
[2020-02-15] MEDS ORDERED: ACETAMINOPHEN 500 MG TAB (TYLENOL) PO PRN ×2 (16:15→16:30)
[2020-02-15 16:16] VITALS: BP 95/63
[2020-02-15 16:22] VITALS: BP 95/63
[2020-02-15] MEDS: NS IV 1000 ML 1,000 ML IV SCH (16:45)
[2020-02-15] MEDS: ENOXAPARIN 30 MG/0.3 ML (LOVENOX) SYR SC SCH (16:50)
[2020-02-15] MEDS ORDERED: SOD POLYSTERENE 15 GM/60 ML (KAYEXALATE) UNIT DOSE PO SCH (18:00)
[2020-02-15] MEDS: SOD POLYSTERENE 15 GM/60 ML (KAYEXALATE) UNIT DOSE PO SCH (18:32)
[2020-02-15 19:30] LABS: CALCIUM 8.9 MG/DL (8.5-10.1); CREATININE SERUM 1.54 MG/DL (0.60-1.30)
[2020-02-15 22:19] VITALS: BP 162/72
[2020-02-15 23:35] VITALS: BP 125/62
[2020-02-16] VITALS (7 sets, daily range): BP systolic 162–190; BP diastolic 64–81
[2020-02-16] MEDS: SOD POLYSTERENE 15 GM/60 ML (KAYEXALATE) UNIT DOSE PO SCH ×4 (00:47→17:31)
[2020-02-16 06:34] LABS: BASOPHILS # (AUTO) 0.1 10^3/uL (0.0-0.1); BASOPHILS % (AUTO) 1 % (0-10); EOSINOPHILS # (AUTO) 0.4 10^3/uL (0.0-0.3); EOSINOPHILS % (AUTO) 4 % (0-10); HEMATOCRIT 39 % (35-52); HEMOGLOBIN 12.2 g/dL (11.5-16.0); LYMPHOCYTES # (AUTO) 2.4 10^3/uL (1.0-4.0); LYMPHOCYTES % (AUTO) 24 % (12-44); MEAN CORPUSCULAR HEMOGLOBIN 30 pg (25-34); MEAN CORPUSCULAR HGB CONC 31 g/dL (32-36); MEAN CORPUSCULAR VOLUME 96 fL (80-99); MEAN PLATELET VOLUME 11.3 fL (9.0-12.2); MONOCYTES # (AUTO) 0.7 10^3/uL (0.0-1.0); MONOCYTES % (AUTO) 7 % (0-12); NEUTROPHILS # (AUTO) 6.4 10^3/uL (1.8-7.8); NEUTROPHILS % (AUTO) 64 % (42-75); PLATELET COUNT 222 10^3/uL (130-400)
[2020-02-16 06:44] LABS: ALBUMIN 3.5 GM/DL (3.2-4.5); POTASSIUM 5.6 MMOL/L (3.6-5.0)
[2020-02-16 06:46] LABS: CALCIUM 8.4 MG/DL (8.5-10.1)
[2020-02-16 06:47] LABS: TOTAL PROTEIN 6.2 GM/DL (6.4-8.2)
[2020-02-16 06:49] LABS: BILIRUBIN,TOTAL 0.4 MG/DL (0.1-1.0)
[2020-02-16 06:50] LABS: CREATININE SERUM 1.36 MG/DL (0.60-1.30)
[2020-02-16] MEDS: NS IV 1000 ML 1,000 ML IV SCH (07:45)
--- NOTE | 2020-02-16 09:09 | Consultation-Cardiology ---
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 The history was obtained by reviewing her record, apparently she has history of hypertension, hyperlipidemia, pacemaker/ICD, congestive heart failure, admitted with severe hyperkalemia. Probably secondary to medication. Has been having diarrhea, had workup with her primary care physician. Home Medications & Allergies Allergies: Coded Allergies: No Known Drug Allergies (Unverified , 01/01/19) Home Medication List Reviewed: Yes [id number] Hx Patient Social History Alcohol Use: Denies Use Recreational Drug Use: No Smoking Status: Never a Smoker 2nd Hand Smoke Exposure: No Recent Foreign Travel: No Recent Infectious Disease Expo: No Recent Hopitalizations: No Physical Abuse Screen: No Sexual Abuse: No Past Medical History Described below Family Medical History Family Medical Hx Noncontributory Review of Systems-General Review of Systems Constitutional: see HPI, malaise EENTM: see HPI, no symptoms reported Respiratory: no symptoms reported, see HPI Cardiovascular: no symptoms reported, see HPI Gastrointestinal: see HPI, diarrhea Genitourinary: see HPI Musculoskeletal: see HPI Skin: see HPI Psychiatric/Neurological: See HPI All Other Systems Reviewed Negative Unless Noted: Yes (Negative excepted noted.) Reviewed Test Results Reviewed Test Results Lab Laboratory Tests Test 02/15/20 12:00 02/15/20 12:21 02/15/20 12:45 02/15/20 14:57 Range/Units White Blood Count 10.5 4.3-11.0 10^3/uL Red Blood Count 4.27 L 4.35-5.85 10^6/uL Hemoglobin 12.9 11.5-16.0 G/DL Hematocrit 40 35-52 % Mean Corpuscular Volume 93 80-99 FL Mean Corpuscular Hemoglobin 30 25-34 PG Mean Corpuscular Hemoglobin Concent 32 32-36 G/DL Red Cell Distribution Width 13.4 10.0-14.5 % Platelet Count 228 130-400 10^3/uL Mean Platelet Volume 11.5 H 7.4-10.4 FL Immature Granulocyte % (Auto) 0 % Neutrophils (%) (Auto) 66 42-75 % Lymphocytes (%) (Auto) 23 12-44 % Monocytes (%) (Auto) 6 0-12 % Eosinophils (%) (Auto) 4 0-10 % Basophils (%) (Auto) 1 0-10 % Neutrophils # (Auto) 7.0 1.8-7.8 X 10^3 Lymphocytes # (Auto) 2.4 1.0-4.0 X 10^3 Monocytes # (Auto) 0.7 0.0-1.0 X 10^3 Eosinophils # (Auto) 0.4 H 0.0-0.3 10^3/uL Basophils # (Auto) 0.1 0.0-0.1 10^3/uL Immature Granulocyte # (Auto) 0.0 0.0-0.1 10^3/uL Sodium Level 139 140 135-145 MMOL/L Potassium Level 7.2 *H 7.0 *H 3.6-5.0 MMOL/L Chloride Level 110 H 112 H 98-107 MMOL/L Carbon Dioxide Level 20 L 20 L 21-32 MMOL/L Anion Gap 9 8 5-14 MMOL/L Blood Urea Nitrogen 69 H 66 H 7-18 MG/DL Creatinine 1.66 H 1.70 H 0.60-1.30 MG/DL Estimat Glomerular Filtration Rate 30 29 BUN/Creatinine Ratio 42 39 Glucose Level 78 52 *L 70-105 MG/DL Calcium Level 9.3 9.2 8.5-10.1 MG/DL Corrected Calcium 9.5 8.5-10.1 MG/DL Total Bilirubin 0.3 0.1-1.0 MG/DL Aspartate Amino Transf (AST/SGOT) 18 5-34 U/L Alanine Aminotransferase (ALT/SGPT) 13 0-55 U/L Alkaline Phosphatase 58 40-136 U/L Troponin I < 0.30 <0.30 NG/ML Total Protein 6.9 6.4-8.2 GM/DL Albumin 3.8 3.2-4.5 GM/DL Urine Color YELLOW Urine Clarity CLEAR Urine pH 5.5 5-9 Urine Specific [place] 1.020 1.016-1.022 Urine Protein NEGATIVE NEGATIVE Urine Glucose (UA) NEGATIVE NEGATIVE Urine Ketones NEGATIVE NEGATIVE Urine Nitrite NEGATIVE NEGATIVE Urine Bilirubin NEGATIVE NEGATIVE Urine Urobilinogen 0.2 < = 1.0 MG/DL Urine Leukocyte Esterase NEGATIVE NEGATIVE Urine RBC (Auto) NEGATIVE NEGATIVE Urine RBC NONE /HPF Urine WBC 0-2 /HPF Urine Squamous Epithelial Cells 5-10 /HPF Urine Crystals NONE /LPF Urine Bacteria TRACE /HPF Urine Casts NONE /LPF Urine Mucus NEGATIVE /LPF Urine Culture Indicated NO Magnesium Level 2.7 H 1.6-2.4 MG/DL Glucometer 243 H 70-110 MG/DL Test 02/15/20 16:35 02/15/20 19:00 02/16/20 06:05 Range/Units Glucometer 141 H 70-110 MG/DL Sodium Level 141 144 135-145 MMOL/L Potassium Level 6.0 H 5.6 H 3.6-5.0 MMOL/L Chloride Level 114 H 117 H 98-107 MMOL/L Carbon Dioxide Level 19 L 19 L 21-32 MMOL/L Anion Gap 8 8 5-14 MMOL/L Blood Urea Nitrogen 58 H 50 H 7-18 MG/DL Creatinine 1.54 H 1.36 H 0.60-1.30 MG/DL Estimat Glomerular Filtration Rate 32 37 BUN/Creatinine Ratio 38 37 Glucose Level 104 103 70-105 MG/DL Calcium Level 8.9 8.4 L 8.5-10.1 MG/DL White Blood Count 10.0 4.3-11.0 10^3/uL Red Blood Count 4.07 3.80-5.11 10^6/uL Hemoglobin 12.2 11.5-16.0 g/dL Hematocrit 39 35-52 % Mean Corpuscular Volume 96 80-99 fL Mean Corpuscular Hemoglobin 30 25-34 pg Mean Corpuscular Hemoglobin Concent 31 L 32-36 g/dL Red Cell Distribution Width 13.4 10.0-14.5 % Platelet Count 222 130-400 10^3/uL Mean Platelet Volume 11.3 9.0-12.2 fL Immature Granulocyte % (Auto) 0 % Neutrophils (%) (Auto) 64 42-75 % Lymphocytes (%) (Auto) 24 12-44 % Monocytes (%) (Auto) 7 0-12 % Eosinophils (%) (Auto) 4 0-10 % Basophils (%) (Auto) 1 0-10 % Neutrophils # (Auto) 6.4 1.8-7.8 10^3/uL Lymphocytes # (Auto) 2.4 1.0-4.0 10^3/uL Monocytes # (Auto) 0.7 0.0-1.0 10^3/uL Eosinophils # (Auto) 0.4 H 0.0-0.3 10^3/uL Basophils # (Auto) 0.1 0.0-0.1 10^3/uL Immature Granulocyte # (Auto) 0.0 0.0-0.1 10^3/uL Corrected Calcium 8.8 8.5-10.1 MG/DL Total Bilirubin 0.4 0.1-1.0 MG/DL Aspartate Amino Transf (AST/SGOT) 14 5-34 U/L Alanine Aminotransferase (ALT/SGPT) 13 0-55 U/L Alkaline Phosphatase 56 40-136 U/L Total Protein 6.2 L 6.4-8.2 GM/DL Albumin 3.5 3.2-4.5 GM/DL Physical Exam Physical Exam Vital Signs Vital Signs - First Documented 02/15/20 11:30 Temp 36.9 Pulse 61 Resp 18 B/P (MAP) 148/57 (87) Pulse Ox 97 O2 Delivery Room Air Capillary Refill : Less Than 3 Seconds Height, Weight, BMI Height: '" Weight: lbs. oz. kg; 44.10 BMI Method: General Appearance: No Apparent Distress, WD/WN Eyes: Bilateral Eye Normal Inspection, Bilateral Eye PERRL, Bilateral Eye EOMI HEENT: PERRL/EOMI, TMs Normal, Normal ENT Inspection, Pharynx Normal, Moist Mucous Membranes Neck: Full Range of Motion, Normal Inspection, Non Tender, Supple, Carotid Bruit Respiratory: Chest Non Tender, Normal Breath Sounds, No Accessory Muscle Use, No Respiratory Distress Cardiovascular: Regular Rate, Rhythm, No Edema, No Gallop, No JVD, No Murmur, Normal Peripheral Pulses Gastrointestinal: Normal Bowel Sounds, No Organomegaly, No Pulsatile Mass, Non Tender, Soft Back: Normal Inspection, No CVA Tenderness, No Vertebral Tenderness Extremity: Normal Capillary Refill, Normal Inspection, Normal Range of Motion, Non Tender, No Calf Tenderness, No Pedal Edema Neurologic/Psychiatric: Alert, Oriented x3, No Motor/Sensory Deficits, Normal Mood/Affect Skin: Normal Color, Warm/Dry Lymphatic: No Adenopathy A/P-Cardiology Admission Diagnosis Hyperkalemia Hypertension Acute renal insufficiency Diarrhea Assessment/Plan Hyperkalemia, probably secondary to medication. Improving at this time. Acute renal insufficiency, improving at this time. Probable underlying congestive heart failure with left ventricular systolic dysfunction, unable to provide any history, I recommend avoiding RIA inhibitor and/or ARB and/or Entresto Pacemaker/ICD, probably primary prevention, patient is unable to provide any history, pacemaker appeared to be functioning normally on EKG. Did not interrogate the pacemaker Hypertension, controlled at this time. Continue to monitor Diabetes mellitus, followed and managed by primary care physician Hypothyroidism, followed and managed by primary care physician Diarrhea, persistent for the past 2 months, has been having workup done by her primary care physician Advanced dementia. Clinical Quality Measures DVT/VTE Risk/Contraindication: Risk Factor Score Per Nursin RFS Level Per Nursing on Admit: 4+=Very High HALEY MARTIN MD Feb 16, 2020 09:09
[2020-02-16] MEDS ORDERED: CITA10TA7 PO (11:45)
[2020-02-16] MEDS ORDERED: FURO20TA4 BC (11:45)
[2020-02-16] MEDS ORDERED: GLIP5TAB13 PO (11:45)
[2020-02-16] MEDS ORDERED: ROSU10TA28 PO ×2 (11:45)
[2020-02-16] MEDS ORDERED: SPIR25TA5 PO (11:45)
[2020-02-16] MEDS ORDERED: QUET25TA73 PO (11:45)
[2020-02-16] MEDS ORDERED: CARV25TA PO (11:45)
[2020-02-16] MEDS ORDERED: LEVO125T6 PO (11:45)
[2020-02-16] MEDS ORDERED: POTA20TA15 PO (11:45)
[2020-02-16] MEDS ORDERED: SACU1TAB7 PO (11:45)
[2020-02-16] MEDS ORDERED: DONE5TAB30 PO (11:45)
[2020-02-16] MEDS ORDERED: FERR324T PO (11:57)
[2020-02-16] MEDS ORDERED: CINN500C2 PO (11:57)
[2020-02-16] MEDS ORDERED: COLO500C PO (11:58)
--- NOTE | 2020-02-16 12:12 | History & Physical-Hospitalist ---
History of Present Illness HPI/Chief Complaint CC: Hyperkalemia HPI: This is an 84[facility]WF patient of [facility] who has dementia and CHF and pacemaker who presented to the [facility] ER with hypotension but upon arrival her BP was normal but labs revealed hyperkalemia of 7.0 requiring IV meds to decrease it. Gentle IVF given along with Kayexelate and her level is much improved today at 5.6. Dr Erazo consulted. No details obtained due to dementia. Date Seen 02/16/20 Time Seen by a Provider: 10:00 Attending Physician Latha Gonzales DO [facility] Center/Se,[facility] Referring Physician Date of Admission Feb 15, 2020 at 16:38 Home Medications & Allergies Home Medications Reviewed patient Home Medication Reconciliation performed by pharmacy medication reconciliations injection molding process technician and/or nursing. Patients Allergies have been reviewed. Allergies Allergies Coded Allergies No Known Drug Allergies (Unverified01/01/19) Past Uketsqc-Ifferl-Xivyjy Hx Past Med/Social Hx: Reviewed Nursing Past Med/Soc Hx, Reviewed and Corrections made Patient Social History Alcohol Use: Denies Use Recreational Drug Use: No Smoking Status: Never a Smoker 2nd Hand Smoke Exposure: No Physical Abuse Screen: No Sexual Abuse: No Recent Foreign Travel: No Contact w/other who traveled: No Recent Hopitalizations: No Recent Infectious Disease Expo: No Seasonal Allergies Seasonal Allergies: No Past Medical History Surgeries: Defibrillator, Pacemaker Cardiac: Chronic Edema/Swelling Neurological: Dementia Genitourinary: Kidney Stones, Renal Failure Gastrointestinal: Diverticulosis Endocrine: Diabetes, Non-Insulin dep Family History Reviewed Nursing Family Hx Review of Systems Constitutional: see HPI Physical Exam Physical Exam Vital Signs Vital Signs - First Documented 02/15/20 11:30 Temp 36.9 Pulse 61 Resp 18 B/P (MAP) 148/57 (87) Pulse Ox 97 O2 Delivery Room Air Capillary Refill : Less Than 3 Seconds Height, Weight, BMI Height: '" Weight: lbs. oz. kg; 44.10 BMI Method: General Appearance: No Apparent Distress, Chronically ill Respiratory: Chest Non Tender, No Accessory Muscle Use, No Respiratory Distress, Decreased Breath Sounds, Wheezing Cardiovascular: Regular Rate, Rhythm, No Edema, No Gallop, No JVD, No Murmur, Normal Peripheral Pulses Neurologic/Psychiatric: Alert, No Motor/Sensory Deficits, Normal Mood/Affect, Disoriented Results Results/Procedures Labs Laboratory Tests 02/15/20 12:00 02/15/20 12:45 02/15/20 19:00 02/16/20 06:05 Patient resulted labs reviewed. Assessment/Plan Admission Diagnosis Assessment: Hyperkalemia CHF Pacemaker ARF CRI Plan: HLIVF Dr Erazo appreciated Admission Status: Inpatient Order (span 2 midnights) Reason for Inpatient Admission: severe hyperkalemia Diagnosis/Problems Diagnosis/Problems (1) Acute hyperkalemia Status: Acute Clinical Quality Measures DVT/VTE Risk/Contraindication: Risk Factor Score Per Nursin RFS Level Per Nursing on Admit: 4+=Very High LATHA GONZALES DO Feb 16, 2020 12:12
[2020-02-16] MEDS: glipiZIDE 5 MG (GLUCOTROL) TAB PO SCH (12:30)
[2020-02-16] MEDS: ROSUVASTATIN 10 MG (CRESTOR) TABLET PO SCH (12:30)
[2020-02-16] MEDS: LEVOTHYROXINE 125 MCG (LEVOTHROID) TABLET PO SCH (12:30)
[2020-02-16] MEDS: ENOXAPARIN 30 MG/0.3 ML (LOVENOX) SYR SC SCH (17:31)
[2020-02-16] MEDS ORDERED: QUEtiapine 25 MG (SEROquel) TAB IMMEDIATE RELEASE PO SCH (21:00)
[2020-02-16] MEDS ORDERED: DONEPEZIL 5 MG (ARICEPT) TAB PO SCH (21:00)
[2020-02-17] MEDS: SOD POLYSTERENE 15 GM/60 ML (KAYEXALATE) UNIT DOSE PO SCH ×3 (00:38→12:47)
[2020-02-17 04:55] VITALS: BP 154/62
[2020-02-17 05:48] LABS: BASOPHILS # (AUTO) 0.1 10^3/uL (0.0-0.1); BASOPHILS % (AUTO) 1 % (0-10); EOSINOPHILS # (AUTO) 0.4 10^3/uL (0.0-0.3); EOSINOPHILS % (AUTO) 4 % (0-10); HEMATOCRIT 39 % (35-52); LYMPHOCYTES # (AUTO) 2.6 10^3/uL (1.0-4.0); LYMPHOCYTES % (AUTO) 28 % (12-44); MEAN CORPUSCULAR HEMOGLOBIN 30 pg (25-34); MEAN CORPUSCULAR HGB CONC 31 g/dL (32-36); MEAN CORPUSCULAR VOLUME 97 fL (80-99); MEAN PLATELET VOLUME 10.9 fL (9.0-12.2); MONOCYTES # (AUTO) 0.7 10^3/uL (0.0-1.0); MONOCYTES % (AUTO) 7 % (0-12); NEUTROPHILS # (AUTO) 5.6 10^3/uL (1.8-7.8); NEUTROPHILS % (AUTO) 60 % (42-75); PLATELET COUNT 219 10^3/uL (130-400); WHITE BLOOD COUNT 9.3 10^3/uL (4.3-11.0)
[2020-02-17 06:13] LABS: ALBUMIN 3.4 GM/DL (3.2-4.5); POTASSIUM 4.5 MMOL/L (3.6-5.0)
[2020-02-17 06:14] LABS: CALCIUM 8.3 MG/DL (8.5-10.1)
[2020-02-17 06:15] LABS: TOTAL PROTEIN 6.1 GM/DL (6.4-8.2)
[2020-02-17 06:17] LABS: BILIRUBIN,TOTAL 0.4 MG/DL (0.1-1.0)
[2020-02-17 06:19] LABS: CREATININE SERUM 1.21 MG/DL (0.60-1.30)
[2020-02-17] MEDS: LEVOTHYROXINE 125 MCG (LEVOTHROID) TABLET PO SCH (06:33)
[2020-02-17 08:00] VITALS: BP 151/82
[2020-02-17] MEDS: ROSUVASTATIN 10 MG (CRESTOR) TABLET PO SCH (08:59)
[2020-02-17] MEDS: glipiZIDE 5 MG (GLUCOTROL) TAB PO SCH (08:59)
--- NOTE | 2020-02-17 09:59 | D/C HH Face to Face Order ---
D/C Face to Face Orders Reconcile Patient Problems Problems Reviewed?: Yes Instructions for Patient Home Health Patient Instructions/FollowUp: PSYCHIATRIC 1 week Physician to follow Patient: [facility] Discharge Diet for Home: Cardiac Diet Patient Problems: Hyperkalemia Patient Data-Allergies,Ht & Wt Patient Allergies: Coded Allergies: No Known Drug Allergies (Unverified , 01/01/19) Home Health Need/Face to Face Date of Face to Face: Feb 17, 2020 Clinical Findings: Generalized weakness and fatigue, Muscle weakness I have seen Pt [id number]: Yes Discharged To: Home Diagnosis/Conditions: Hyperkalemia Patient is Homebound due to: CognItive deficits, Eliana fall risk due to in stabilty, Muscle weakness Homebound Status Due to the above stated illness, injury or surgical procedure (medical condition or diagnosis) and associated clinical findings, the patient is homebound because of his/her inability to leave home except with aid of a supportive device and/or person AND leaving the home requires a considerable and taxing effort or is medically contraindicated. Pt req the following assistanc: [facility] Nursing Orders Home Health Services Order: Nursing Services, Sky Cap-Evaluate & Treat, Physical Therapy-Evaluate & Treat Home Health Infusion Therapy Line Start Date: Feb 15, 2020 Certify Stmt I certify that this patient is under my care and that I, a nurse practitioner or a physician; a fast food sales assistant working with me, had a face to face encounter that - meets the physician face to face encounter requirements with this patient as dated. LURDES MCNEIL DO Feb 17, 2020 09:59
--- NOTE | 2020-02-17 09:59 | Discharge Inst-Skilled Nursing ---
Discharge Inst-Skilled NF Reconcile Patient Problems Problems Reviewed?: Yes Chief Complaint CC: Hyperkalemia HPI: This is an 84yoWF patient of [facility] who has dementia and CHF and pacemaker who presented to the [facility] ER with hypotension but upon arrival her BP was normal but labs revealed hyperkalemia of 7.0 requiring IV meds to decrease it. Gentle IVF given along with Kayexelate and her level is much improved today at 5.6. Dr Erazo consulted. No details obtained due to dementia. Patient Instructions Patient Problems: Hyperkalemia Goal: Weakness Consult/Follow Up/Orders Follow Up Appt.: [facility] 1 week Skilled NF Admit to: Certification (SNF) I certify that SNF services are required to be given on an inpatient basis because of the above named patient's need for long-term care on a continuing basis for the conditions(s) for which he/she was receiving inpatient hospital services prior to his/her transfer to the SNF. Jail Facility Order: Nursing Services, Microwave Oven Assembler-Evaluate & Treat, Physical Therapy-Evaluate & Treat, Speech Language-Evaluate & Treat Oxygen Delivery Method: Room Air Discharge Diet: Cardiac Diet Resuscitation Status: Full Code New & Resume Previous Orders Continued Medications: Cinnamon Bark (Cinnamon) 500 Mg Capsule 500 MG PO HS, CAP Citalopram Hydrobromide (Citalopram HBr) 10 Mg Tablet 10 MG PO DAILY Colostrum, Bovine (Colostrum) Unknown Strength Capsule Unknown Dose PO HS, CAP Donepezil HCl (Donepezil HCl) 5 Mg Tablet 5 MG PO HS Ferrous Gluconate (Ferrous Gluconate) 324 Mg Tablet 324 MG PO UD, TAB monday and Glipizide (Glipizide) 5 Mg Tablet 5 MG PO DAILY Levothyroxine Sodium (Levothyroxine Sodium) 125 Mcg Tablet 125 MCG PO DAILY Quetiapine Fumarate (Quetiapine Fumarate) 25 Mg Tablet 25 MG PO HS Rosuvastatin Calcium (Rosuvastatin Calcium) 10 Mg Tablet 10 MG PO DAILY Discontinued Medications: Carvedilol (Carvedilol) 25 Mg Tablet 50 MG PO BID Furosemide (Furosemide) 20 Mg Tablet 20 MG BC UD every other day Potassium Chloride (Potassium Chloride) 20 Meq Tab.er.prt 10 MEQ PO DAILY Sacubitril/Valsartan (Entresto 49 mg-51 mg Tablet) 1 Each Tablet 1 EA PO BID Spironolactone (Spironolactone) 25 Mg Tablet 12.5 MG PO DAILY Latha Gonzales Feb 17, 2020 09:59 LATHA GONZALES DO Feb 17, 2020 09:59
--- NOTE | 2020-02-17 10:00 | Discharge Summary ---
Discharge Summary Hospital Course Was the Problem List Reviewed?: Yes Problems/Dx: (1) Acute hyperkalemia Status: Acute Hospital Course Date of Admission: Feb 15, 2020 at 16:38 Admission Diagnosis : Family Physician/Provider: Reshma Lugo Aprn Date of Discharge: 02/17/20 Discharge Diagnosis: Assessment: Hyperkalemia CHF Pacemaker ARF CRI Plan: IVF Dr Erazo appreciated Hospital Course: Hospital course: Pt had a brief hospital course, she was admitted for weakness and altered mental status due to issues with dementia but found to have potassium of 7.2, she was given medication to decrease that along with Kayexalate and gentle IV fluids due to acute kidney injury. That ultimately returned the potassium level back to 4.5 at time of discharge. Home health was ordered or skilled care depending on what family decided at time of discharge. Labs and Pending Lab Test: Laboratory Tests 02/17/20 05:40: White Blood Count 9.3, Red Blood Count 4.01, Hemoglobin 12.0, Hematocrit 39, Mean Corpuscular Volume 97, Mean Corpuscular Hemoglobin 30, Mean Corpuscular Hemoglobin Concent 31L, Red Cell Distribution Width 13.3, Platelet Count 219, Mean Platelet Volume 10.9, Immature Granulocyte % (Auto) 0, Neutrophils (%) (Auto) 60, Lymphocytes (%) (Auto) 28, Monocytes (%) (Auto) 7, Eosinophils (%) (Auto) 4, Basophils (%) (Auto) 1, Neutrophils # (Auto) 5.6, Lymphocytes # (Auto) 2.6, Monocytes # (Auto) 0.7, Eosinophils # (Auto) 0.4H, Basophils # (Auto) 0.1, Immature Granulocyte # (Auto) 0.0, Sodium Level 143, Potassium Level 4.5, Chloride Level 117H, Carbon Dioxide Level 19L, Anion Gap 7, Blood Urea Nitrogen 34H, Creatinine 1.21, Estimat Glomerular Filtration Rate 42, BUN/Creatinine Ratio 28, Glucose Level 97, Calcium Level 8.3L, Corrected Calcium 8.8, Total Bilirubin 0.4, Aspartate Amino Transf (AST/SGOT) 17, Alanine Aminotransferase (ALT/SGPT) 15, Alkaline Phosphatase 52, Total Protein 6.1L, Albumin 3.4 Home Meds Active Reported Colostrum (Colostrum, Bovine) Unknown Strength Capsule Unknown Dose PO HS Ferrous Gluconate 324 Mg Tablet 324 Mg PO UD monday and Cinnamon (Cinnamon Bark) 500 Mg Capsule 500 Mg PO HS Citalopram HBr (Citalopram Hydrobromide) 10 Mg Tablet 10 Mg PO DAILY Levothyroxine Sodium 125 Mcg Tablet 125 Mcg PO DAILY Donepezil HCl 5 Mg Tablet 5 Mg PO HS Rosuvastatin Calcium 10 Mg Tablet 10 Mg PO DAILY Entresto 49 mg-51 mg Tablet (Sacubitril/Valsartan) 1 Each Tablet 1 Ea PO BID Furosemide 20 Mg Tablet 20 Mg BC UD every other day Spironolactone 25 Mg Tablet 12.5 Mg PO DAILY Carvedilol 25 Mg Tablet 50 Mg PO BID Glipizide 5 Mg Tablet 5 Mg PO DAILY Quetiapine Fumarate 25 Mg Tablet 25 Mg PO HS Potassium Chloride 20 Meq Tab.er.prt 10 Meq PO DAILY Assessment/Pt Instructions chc 1 week Discharge Planning: <30 minutes discharge planning Discharge Instructions Discharge Diet: No Restrictions, Cardiac Diet Activity as Tolerated: Yes Discharge Physical Examination Vital Signs Vital Signs Date Time Temp Pulse Resp B/P (MAP) Pulse Ox O2 Delivery O2 Flow Rate FiO2 02/17/20 08:00 35.9 74 18 151/82 (105) 98 Room Air General Appearance: No Apparent Distress, Chronically ill Respiratory: Normal Breath Sounds Cardiovascular: Regular Rate, Rhythm Neurologic/Psychiatric: Alert, Disoriented Allergies: Coded Allergies: No Known Drug Allergies (Unverified , 01/01/19) Discharge Summary Date of Admission Feb 15, 2020 at 16:38 Date of Discharge Discharge Date: Feb 17, 2020 Admission Diagnosis Assessment: Hyperkalemia CHF Pacemaker ARF CRI Plan: IVF Dr Erazo appreciated Discharge Diagnosis (1) Acute hyperkalemia Status: Acute Clinical Quality Measures DVT/VTE Risk/Contraindication: Risk Factor Score Per Nursin RFS Level Per Nursing on Admit: 4+=Very High LURDES MCNEIL DO Feb 17, 2020 10:00
--- NOTE | 2020-02-17 10:21 | Cardiology Progress Note ---
Subjective Date Seen by Provider: Feb 17, 2020 Time Seen by Provider: 10:19 Subjective/Events-last exam Patient is sitting up in chair, denies any chest pain or dyspnea. No complaints at this time. Review of Systems General: No Chills, No Night Sweats, No Fatigue, No Malaise, No Appetite, No Other HEENT: No Head Aches, No Visual Changes, No Eye Pain, No Ear Pain, No Dysphasia, No Sinus Congestion, No Post Nasal Drip, No Sore Throat, No Other Pulmonary: No Dyspnea, No Cough, No Pleuritic Chest Pain, No Other Cardiovascular: No: Chest Pain, Palpitations, Orthopnea, Paroxysmal Noc. Dyspnea, Edema, Lt Headedness, Other Objective-Cardiology Exam Last Set of Vital Signs Vital Signs 02/17/20 08:00 Temp 35.9 Pulse 74 Resp 18 B/P (MAP) 151/82 (105) Pulse Ox 98 O2 Delivery Room Air Capillary Refill : Less Than 3 Seconds I&O Intake and Output 02/17/20 00:00 Intake Total 2220 ml Balance 2220 ml Intake Oral 1020 ml IV Total 1200 ml # Voids 9 # Bowel Movements 10 General: Alert, Cooperative HEENT: Atraumatic, PERRLA, EOMI Neck: Supple, No JVD, No Thyromegaly Lungs: Clear to Auscultation, Normal Air Movement Heart: Regular Rate, Normal S1, Normal S2, No Murmurs Abdomen: Normal Bowel Sounds, Soft, No Tenderness, No Hepatosplenomegaly, No Masses Extremities: No Clubbing, No Cyanosis, No Edema, Normal Pulses, No Tenderness/Swelling Skin: No Rashes, No Breakdown, No Significant Lesion Neuro: Normal Speech Psych/Mental Status: Mood NL Results Lab Laboratory Tests 02/17/20 05:40 A/P-Cardiology Admission Diagnosis Hyperkalemia Hypertension Acute renal insufficiency Diarrhea Assessment/Plan Hyperkalemia, probably secondary to medication. Improved. Continue to monitor. Acute renal insufficiency, improving at this time. Probable underlying congestive heart failure with left ventricular systolic dysfunction, unable to provide any history, I recommend avoiding RIA inhibitor and/or ARB and/or Entresto Pacemaker/ICD, probably primary prevention, patient is unable to provide any history, pacemaker appeared to be functioning normally on EKG. Did not interrogate the pacemaker Hypertension, controlled at this time. Continue to monitor Diabetes mellitus, followed and managed by primary care physician Hypothyroidism, followed and managed by primary care physician Diarrhea, persistent for the past 2 months, has been having workup done by her primary care physician Advanced dementia. Patient was seen and evaluated with Maryse, examination performed, management plan was discussed, agree with the current scribed note, I made few changes to the note using Italic font Patient was seen at bedside sitting comfortably Visit with the daughter, patient follows with Dr. Stover, survey field technician in [place]. I recommend holding potassium supplement and Entresto due to severe hyperkalemia Okay for discharge and arrange for follow-up with her primary survey field technician Clinical Quality Measures DVT/VTE Risk/Contraindication: Risk Factor Score Per Nursin RFS Level Per Nursing on Admit: 4+=Very High MARYSE HULL Feb 17, 2020 10:21 am HALEY MARTIN MD Feb 17, 2020 12:06 pm
--- NOTE | 2020-02-17 10:41 | NUR ---
CM/SS: Visited with pt as to plan for discharge and other services needed at time of discharge. Concern as pt has some confusion. Plan: Pt to be discharged to home with no identified services. Summary: Pt reports she is doing good today and feeling better. Pt is asked where she is from. Pt thinks that she is from [place]. Pt is asked some other information. She seems a bit confused. Pt is asked about her memory. She reports she forgets things from time to time. But otherwise she is good. Pt is not open to home care and that she has family that checks on her several times per day. Pt reports her daughters do a good job. She is asked for permission to call her daughter. She gives permission to call her daughter. Telephone Call to Daughter [phone] Bita. She reports that pt does live alone and that they check on her several times per day, they live across [address]. Asked about Home Care - she reports she refuses it, but if she would change her mind, that would be great. Daughter wants to ensure that pt is better. She is told of pt's discharge today. She will be able to arrange and grain picker pt, just wants to ensure that is better and doing ok. This worker will follow up.
--- NOTE | 2020-02-17 11:23 | NUR ---
I WAS UNABLE TO COMPLETE THIS PATIENT'S MED REC DUE TO THEM BEING DISCHARGED.
[2020-02-17] MEDS ORDERED: CRV25T PO (11:31)
[2020-02-17 12:00] VITALS: BP 153/70
[2020-02-17 16:45] VITALS: BP 153/70
[2020-02-17] MEDS ORDERED: ENOXAPARIN 40 MG/0.4 ML (LOVENOX) SYR SC SCH (17:00)
--- NOTE | 2020-02-17 17:02 | Progress Note ---
DONNELL KELLER MED STUDENT 02/17/20 1702: Progress Note Ms. Freeman is a pleasant 84 y.o. F who was admitted on 02/14 via [facility] ED with hypotension, but BP normalized upon arrival. However, her labs showed hyperkalemia of 7.0. She was rehydrated with IVF and was given Kayelexelate. She otherwise was feeling well, though she was a poor historian secondary to dementia. Labs improved today, with potassium of 4.5. She is ready for discharge today. Discussed discharge to home or long-term depending on home situation, to be discussed with family. LATHA MCNEIL DO 02/18/20 0540: Supervisory-Addendum Brief Verification & Attestation Participated in pt care: history, MDM, physical Personally performed: exam, history, MDM, supervision of care Care discussed with: Medical Student Procedures: n/a Results interpretation: Verified all documentation Verification and Attestation of Medical Student E/M Service A medical student performed and documented this service in my presence. I reviewed and verified all information documented by the medical student and made modifications to such information, when appropriate. I personally performed the physical exam and medical decision making. Latha Mcneil, Feb 18, 2020,05:40 DONNELL KELLER MED STUDENT Feb 17, 2020 17:02 LATHA MCNEIL DO Feb 18, 2020 05:40
--- NOTE | 2020-02-19 02:14 | Physician Query Clarification ---
PQ-CHF Specificity Admission Date: Feb 15, 2020 at 16:38 Discharge Date: Feb 17, 2020 at 16:51 LURDES Vega DO The medical record reflects the following clinical scenario: History/Risk Factors: 84 y/o female admitted for weakness and altered mental status due to issues with dementia but found to have potassium of 7.2, she was given medication to decrease that along with Kayexalate and gentle IV fluids due to acute kidney injury. Hand P, 02/15: Acute Hyperkalemia, CHF, ARF planned IV Fluids. Cardiology progress notes, 02/15: Hyperkalemia, probably secondary to medication. Improving at this time acute renal insufficiency, improving at this time. Probable underlying congestive heart failure with left ventricular systolic dysfunction, unable to provide any history, recommend avoiding RIA inhibitor. Clinical Findings: Normal EKG Treatment: Avoid RIA inhibitors, Furosemide 20 mg daily Question: Can you further specify the acuity &/or type of CHF per the clinical indicators above? Please document a response in the Progress Notes or Discharge Summary. 1. Acuity: Acute, Chronic or Acute on Chronic 2. Type: Systolic, Diastolic or Systolic & Diastolic 3. Unspecified: CHF cannot be further specified regarding type or acuity 4. Other, with explanation of clinical findings 5. Clinically undetermined, no explanation for clinical findings PHYSICIAN RESPONSE Acuity: Other (list below) Type: Other (explain below) Other, clinical findings inquire with cardiology Please remember a lack of response to the above will prompt a phone page by CDI/Coding staff. In responding to this query, please exercise your independent professional judgment. The purpose of this communication is to more accurately reflect the complexity of your patients condition. The fact that a question is asked does not imply that any particular answer is desired or expected. Thank you for your timely response to this clarification. Requestors name: [ ] Phone # [ ] THIS PHYSICIAN QUERY FORM IS A PERMANENT PART OF THE MEDICAL RECORD LYLE JAMES Feb 19, 2020 02:14 LURDES MCNEIL DO Feb 19, 2020 05:54
--- NOTE | 2020-02-19 21:18 | Physician Query Clarification ---
PQ-CHF Specificity Admission Date: Feb 15, 2020 at 16:38 Discharge Date: Feb 17, 2020 at 16:51 Dr. HALEY MARTIN MD The medical record reflects the following clinical scenario: History/Risk Factors: 84 y/o female admitted for weakness and altered mental status due to issues with dementia but found to have potassium of 7.2, she was given medication to decrease that along with Kayexalate and gentle IV fluids due to acute kidney injury. Hand P, 02/15: Acute Hyperkalemia, CHF, ARF planned IV Fluids. Cardiology consultation, 02/15: Hyperkalemia, probably secondary to medication. Improving at this time acute renal insufficiency, improving at this time. Probable underlying congestive heart failure with left ventricular systolic dysfunction, unable to provide any history, recommend avoiding RIA inhibitor. Cardiology progress notes, 02/16: Hyperkalemia, probably secondary to medication. Improving at this time acute renal insufficiency, improving at this time. Probable underlying congestive heart failure with left ventricular systolic dysfunction, unable to provide any history, recommend avoiding RIA inhibitor. Clinical Findings: Normal EKG Treatment: Avoid RIA inhibitors, Furosemide 20 mg daily. Question: Can you further specify the acuity &/or type of CHF per the clinical indicators above? Please document a response in the Progress Notes or Discharge Summary. 1. Acuity: Acute, Chronic or Acute on Chronic 2. Type: Systolic, Diastolic or Systolic & Diastolic 3. Unspecified: CHF cannot be further specified regarding type or acuity 4. Other, with explanation of clinical findings 5. Clinically undetermined, no explanation for clinical findings PHYSICIAN RESPONSE Acuity: CHF cannot be further specified Type: CHF cannot be further specified Please remember a lack of response to the above will prompt a phone page by CDI/Coding staff. In responding to this query, please exercise your independent professional judgment. The purpose of this communication is to more accurately reflect the complexity of your patients condition. The fact that a question is asked does not imply that any particular answer is desired or expected. Thank you for your timely response to this clarification. Requestors name: [ ] Phone # [ ] THIS PHYSICIAN QUERY FORM IS A PERMANENT PART OF THE MEDICAL RECORD LYLE JAMES Feb 19, 2020 21:18 HALEY MARTIN MD Feb 20, 2020 08:09
== END 2020-02-17 16:51 | disposition home or self-care (01) | DRG 641 ==
LOC: EDUNIT# 11:22 → ER FS 11:23 → 4TH 16:38
PROVIDERS: ADMIT Internal Medicine; ATTEND Internal Medicine
DX: E87.5 Hyperkalemia (principal); I50.20 Unspecified systolic (congestive) heart failure; N17.9 Acute kidney failure, unspecified; I13.0 Hypertensive heart and chronic kidney disease with heart failure and stage 1 through stage 4 chronic kidney disease, or unspecified chronic kidney disease; E78.5 Hyperlipidemia, unspecified; Z95.810 Presence of automatic (implantable) cardiac defibrillator; E11.9 Type 2 diabetes mellitus without complications; E03.9 Hypothyroidism, unspecified; N18.9 Chronic kidney disease, unspecified; F03.90 Unspecified dementia, unspecified severity, without behavioral disturbance, psychotic disturbance, mood disturbance, and anxiety
CPT/HCPCS: 36415; 71045; 80048; 80053; 81000; 82962; 83735; 84484; 85025; 93005

== ENCOUNTER → 2020-06-19 | Outpatient (CLI) | payer MEDICARE, MEDICAID ==
[~2020-06-19] MED LIST changes: +CARV25TA PO; +CINN500C2 PO; +CITA10TA7 PO; +COLO500C PO; +CRV25T PO; +DONE5TAB30 PO; +FERR324T PO; +FURO20TA4 BC; +GLIP5TAB13 PO; +LEVO125T6 PO; +POTA20TA15 PO; +QUET25TA34 PO; +ROSU10TA28 PO; +SACU1TAB7 PO; +SPIR25TA5 PO
--- NOTE | 2020-06-19 13:53 | Diagnostic Imaging Report ---
INDICATION: Shortness of breath. TIME OF EXAM: 11:10 AM Correlation is made prior chest 02/15/2020. FINDINGS: Heart is enlarged but stable. Cardiac defibrillator remains in place. The lungs are clear. No infiltrates are seen. There is no evidence of congestive failure. No effusion or pneumothorax is detected. IMPRESSION: Cardiomegaly. No acute cardiopulmonary process is detected. Dictated by: Dictated on workstation # [id number]
== END ==
LOC: RAD FS 11:04
PROVIDERS: ATTEND Nurse Practitioner Family
DX: I51.7 Cardiomegaly (principal)
CPT/HCPCS: 71046

== ENCOUNTER → 2021-07-11 | Outpatient (CLI) | payer MEDICARE, MEDICAID ==
[~2021-07-11] MED LIST changes: -CITA10TA7 PO; +CITA10TA9 PO; +POTA-179 PO; -POTA20TA15 PO; -QUET25TA34 PO; +QUET25TA35 PO
[2021-07-11 14:18] LABS: HEMATOCRIT 43 % (35-52); HEMOGLOBIN 14.2 g/dL (11.5-16.0); MEAN CORPUSCULAR HEMOGLOBIN 30 pg (25-34); MEAN CORPUSCULAR HGB CONC 33 g/dL (32-36); MEAN CORPUSCULAR VOLUME 91 fL (80-99); MEAN PLATELET VOLUME 11.8 fL (9.0-12.2); PLATELET COUNT 218 10^3/uL (130-400); WHITE BLOOD COUNT 6.4 10^3/uL (4.3-11.0)
[2021-07-11 14:23] LABS: BILIRUBIN,URINE NEGATIVE (NEGATIVE); CLARITY,URINE CLEAR; COLOR,URINE YELLOW; GLUCOSE, URINE (UA) NEGATIVE (NEGATIVE); KETONES,URINE NEGATIVE (NEGATIVE); LEUKOCYTE ESTERASE ,URINE NEGATIVE (NEGATIVE); NITRITE,URINE NEGATIVE (NEGATIVE); PROTEIN,URINE NEGATIVE (NEGATIVE)
[2021-07-11 14:24] LABS: BACTERIA,URINE TRACE /HPF; RBC,URINE 0-2 /HPF
[2021-07-11 14:40] LABS: BILIRUBIN,TOTAL 0.3 MG/DL (0.1-1.0); CALCIUM 8.6 MG/DL (8.5-10.1); CREATININE SERUM 1.29 MG/DL (0.60-1.30); POTASSIUM 3.8 MMOL/L (3.6-5.0); TOTAL PROTEIN 6.7 GM/DL (6.4-8.2)
== END ==
LOC: LAB FS 14:10
PROVIDERS: ATTEND Nurse Practitioner Family
DX: J09.X2 Influenza due to identified novel influenza A virus with other respiratory manifestations (principal)
CPT/HCPCS: 36415; 80053; 81000; 85027

== ENCOUNTER → 2021-11-20 | Outpatient (CLI) | payer MEDICARE, MEDICAID ==
[2021-11-20 11:01] LABS: HEMATOCRIT 44 % (35-52); HEMOGLOBIN 14.2 g/dL (11.5-16.0); MEAN CORPUSCULAR HEMOGLOBIN 29 pg (25-34); MEAN CORPUSCULAR HGB CONC 32 g/dL (32-36); MEAN CORPUSCULAR VOLUME 92 fL (80-99); MEAN PLATELET VOLUME 11.8 fL (9.0-12.2); PLATELET COUNT 275 10^3/uL (130-400); WHITE BLOOD COUNT 10.5 10^3/uL (4.3-11.0)
[2021-11-20 11:08] LABS: BACTERIA,URINE FEW /HPF; BILIRUBIN,URINE NEGATIVE (NEGATIVE); CLARITY,URINE CLEAR; COLOR,URINE YELLOW; GLUCOSE, URINE (UA) NEGATIVE (NEGATIVE); KETONES,URINE NEGATIVE (NEGATIVE); LEUKOCYTE ESTERASE ,URINE NEGATIVE (NEGATIVE); NITRITE,URINE NEGATIVE (NEGATIVE); PH,URINE 5.5 (5-9); PROTEIN,URINE NEGATIVE (NEGATIVE); WBC,URINE RARE /HPF
[2021-11-20 11:28] LABS: ALBUMIN 4.2 GM/DL (3.2-4.5); BILIRUBIN,TOTAL 0.4 MG/DL (0.1-1.0); CALCIUM 9.1 MG/DL (8.5-10.1); CREATININE SERUM 1.14 MG/DL (0.60-1.30); POTASSIUM 4.3 MMOL/L (3.6-5.0); TOTAL PROTEIN 6.6 GM/DL (6.4-8.2)
== END ==
LOC: LAB FS 10:47
PROVIDERS: ATTEND Family Medicine
DX: M54.50 Low back pain, unspecified (principal); U07.1 COVID-19
CPT/HCPCS: 36415; 80053; 81000; 85027; 87088

== ENCOUNTER 2022-02-17 17:32 | Emergency (ER) | payer MEDICARE, MEDICAID ==
--- NOTE | 2022-02-17 17:40 | ED Fall/Injury ---
General Stated Complaint: FELL,HIT HEAD Source: patient, EMS, care home records Exam Limitations: no limitations History of Present Illness Date Seen by Provider: Feb 17, 2022 Time Seen by Provider: 17:30 Initial Comments 86-year-old female with past medical history of dementia, heart failure, hypertension coming in via EMS from the nursing due to numerous fall slipping out of her wheelchair. Most recent 1 happened just prior to arrival. She believes she did hit her head on the left side. She denies any headache or confusion. Does not take any blood thinners. Also having intermittent left hip pain, worse with movement, better with rest. Also having intermittent lower back pain. EMS reports she was able to stand up and assist with ambulation. She is otherwise denying any other acute complaints including chest pain, shortness of breath, abdominal pain, nausea, vomiting, diarrhea, fever, chills, focal weakness or numbness, vision changes, or any other concerns. Allergies and Home Medications Allergies Coded Allergies: No Known Drug Allergies (Unverified , 01/01/19) Patient Home Medication List Home Medication List Reviewed: Yes Carvedilol (Coreg) 25 Mg Tab, 25 MG PO BID Prescribed by: MARYSE NELSON on 02/17/20 1131 Cinnamon Bark (Cinnamon) 500 Mg Capsule, 500 MG PO HS, (Reported) Entered as Reported by: DEUCE MIXON on 02/16/20 1157 Citalopram Hydrobromide (Citalopram HBr) 10 Mg Tablet, 10 MG PO DAILY, (Reported) Entered as Reported by: DEUCE MIXON on 02/16/20 1145 Colostrum, Bovine (Colostrum) Unknown Strength Capsule, Unknown Dose PO HS, (Reported) Entered as Reported by: DEUCE MIXON on 02/16/20 1158 Donepezil HCl (Donepezil HCl) 5 Mg Tablet, 5 MG PO HS, (Reported) Entered as Reported by: DEUCE MIXON on 02/16/20 1145 Ferrous Gluconate (Ferrous Gluconate) 324 Mg Tablet, 324 MG PO UD, (Reported) Entered as Reported by: DEUCE MIXON on 02/16/20 1157 Glipizide (Glipizide) 5 Mg Tablet, 5 MG PO DAILY, (Reported) Entered as Reported by: DEUCE MIXON on 02/16/20 1145 Levothyroxine Sodium (Levothyroxine Sodium) 125 Mcg Tablet, 125 MCG PO DAILY, (Reported) Entered as Reported by: DEUCE MIXON on 02/16/20 1145 Quetiapine Fumarate (Quetiapine Fumarate) 25 Mg Tablet, 25 MG PO HS, (Reported) Entered as Reported by: DEUCE MIXON on 02/16/20 1145 Rosuvastatin Calcium (Rosuvastatin Calcium) 10 Mg Tablet, 10 MG PO DAILY, (Reported) Entered as Reported by: DEUCE MIXON on 02/16/20 1145 Review of Systems Review of Systems Constitutional: No fever Eyes: Denies Blurred Vision Ears, Nose, Mouth, Throat: no symptoms reported Respiratory: no symptoms reported Cardiovascular: no symptoms reported Gastrointestinal: no symptoms reported Genitourinary: no symptoms reported Musculoskeletal: see HPI Skin: no symptoms reported Psychiatric/Neurological: No Symptoms Reported All Other Systems Reviewed Negative Unless Noted: Yes Past Dfooswi-Rbnpen-Hzmpgv Hx Patient Social History Tobacco Use?: No Seasonal Allergies Seasonal Allergies: No Past Medical History Surgeries: Yes Defibrillator, Pacemaker Respiratory: No Cardiac: Yes Chronic Edema/Swelling Neurological: Yes Dementia Genitourinary: Yes (CKD stage 3) Kidney Stones, Renal Failure Gastrointestinal: Yes Diverticulosis Musculoskeletal: Yes (osteoarthritis, DJD right hip) Endocrine: Yes Diabetes, Non-Insulin dep HEENT: No Cancer: No Psychosocial: No Integumentary: No Physical Exam Vital Signs Vital Signs - First Documented 02/17/22 17:32 Temp 36.4 Pulse 89 Resp 16 B/P (MAP) 166/125 (139) Pulse Ox 93 O2 Delivery Room Air Capillary Refill : Height, Weight, BMI Height: '" Weight: lbs. oz. kg; 44.10 BMI Method: General Appearance: WD/WN, no apparent distress, other (Pleasant, smiling) HEENT: PERRL/EOMI, normal ENT inspection, pharynx normal Neck: non-tender, full range of motion, supple, normal inspection Cardiovascular: regular rate, rhythm, no murmur Respiratory: chest non-tender, lungs clear, normal breath sounds, no re spiratory distress, no accessory muscle use Gastrointestinal: normal bowel sounds, non tender, soft; No guarding, No rebound Back: normal inspection, no CVA tenderness, vertebral tenderness (Around L1 mild) Extremities: normal range of motion, normal inspection, no pedal edema, no calf tenderness, normal capillary refill, other (Mild tenderness around left hip laterally, no pain with logroll of leg, normal strength with hip movement with no pain) Neurologic/Psychiatric: no motor/sensory deficits, alert, normal mood/affect, other (Disoriented to time, at baseline) Skin: normal color, warm/dry Lymphatic: no adenopathy Sumaya Coma Score Best Eye Response: (4) Open Spontaneously Best Verbal Response: (5) Oriented Best Motor Response: (6) Obeys Commands Progress/Results/Core Measures Results/Orders Lab Results Laboratory Tests Test 02/17/22 17:47 Range/Units My Orders Orders - TONIE HERNANDEZ MD Ct Head Wo (02/17/22 17:35) Ct Lumbar Spine Wo (02/17/22 17:35) Ua Culture If Indicated (02/17/22 17:35) Ct Pelvis Wo (02/17/22 17:35) Acetaminophen Tablet (Tylenol Tablet) (02/17/22 17:45) Medications Given in ED Current Medications Medications Dose Ordered Sig/Kaylynn Route Start Time Stop Time Status Last Admin Dose Admin Acetaminophen 1,000 mg ONCE ONCE PO 02/17/22 17:45 02/17/22 17:46 DC 02/17/22 18:09 1,000 MG Vital Signs/I&O 02/17/22 17:32 Temp 36.4 Pulse 89 Resp 16 B/P (MAP) 166/125 (139) Pulse Ox 93 O2 Delivery Room Air Progress Progress Note : Progress Note 86-year-old female with above history coming in after a low-energy fall, multiple today. ABCs were intact, GCS 15, vital stable on presentation. Physical exam with mild left lateral hip tenderness, mild lower back tenderness, and mild left-sided head tenderness. CT head, pelvis, lumbar spine ordered and are negative for any acute abnormalities. Patient given Tylenol for pain contro l. Urinalysis also obtained given the nursing report was that they are concerned with the scent of her urine. I believe the patient is stable for discharge with outpatient follow-up. She was sent home with strict return precautions Diagnostic Imaging Diagonstic Imaging: CT (head, lumbar spine, pelvis without) Comments NAME: ONIEL LONGORIA [facility] REC#: [id number] PT STATUS: REG ER : 1935 PHYSICIAN: TONIE HERNANDEZ MD ADMIT DATE: 02/17/22/ER FS Draft Date of Exam:02/17/22 CT PELVIS WO Procedure: CT pelvis without contrast. Technique: Multiple contiguous axial images were obtained through the pelvis without the use of intravenous contrast. Sagittal and coronal reformations were performed. Auto Exposure Controls were utilized during the CT exam to meet ALARA standards for radiation dose reduction. Date: February 17, 2022. Indication: 86-year-old female, fall. Bilateral hip pain. Comparison: None. Findings: There is no identified acute fracture. The hips are not dislocated. There is no joint space loss of either hip. There is transitional lumbosacral anatomy. There are multilevel degenerative changes of the lumbar spine. There is no identified free fluid in the pelvis. There is no identified focal fluid collection. There is diverticulosis without evidence of acute diverticulitis. Impression: No identified acute bony abnormality of the pelvis. Dictated on workstation # [id number] Dict: 02/17/22 1824 Trans: 02/17/22 182 PJE [id number] Interpreted by: ANTOINE BARTON MD Electronically signed by: ASCAME VIA [place], [place] NAME: ONIEL LONGORIA [facility] REC#: [id number] PT STATUS: REG ER : 1935 PHYSICIAN: TONIE HERNANDEZ MD ADMIT DATE: 02/17/22/ER FS Draft Date of Exam:02/17/22 CT LUMBAR SPINE WO Procedure: CT lumbar spine without contrast. Technique: Multiple contiguous axial images were obtained through the lumbar spine without the use of intravenous contrast. Sagittal and coronal reformations were then performed. Auto Exposure Controls were utilized during the CT exam to meet ALARA standards for radiation dose reduction. Date: February 17, 2022. Indication: 86-year-old female, fall out of wheelchair. Low back pain. Comparison: CT thoracic and lumbar spine January 01, 2019. Findings: There is no identified acute fracture of the lumbar spine. There is mild disc loss at L4-L5. There is moderate to severe disc height loss at L2-L3. CT is limited for assessment of disc pathology as well as additional nonbony causes of pathology in the spinal canal. The sacroiliac joints are unremarkable in appearance. There are bilateral facet degenerative changes at L4-L5 and L5-S1. There are atherosclerotic calcifications. There is diverticulosis without evidence of acute diverticulitis. Impression: 1. No identified acute fracture of the lumbar spine. 2. Multilevel degenerative changes of the lumbar spine. Dictated on workstation # [id number] Dict: 02/17/221817 Trans: 02/17/221826 PJE [id number] Interpreted by: ANTOINE BARTON MD Electronically signed by: NAME: ONIEL LONGORIA [facility] REC#: [id number] PT STATUS: REG ER : 1935 PHYSICIAN: TONIE HERNANDEZ MD ADMIT DATE: 02/17/22/ER FS Draft Date of Exam:02/17/22 CT HEAD WO PROCEDURE: CT head without contrast. TECHNIQUE: Multiple contiguous axial images were obtained through the brain without the use of intravenous contrast. Auto Exposure Controls were utilized during the CT exam to meet ALARA standards for radiation dose reduction. DATE: February 17, 2022. COMPARISON: CT head and cervical spine January 01, 2019. INDICATION: 86-year-old female, fall. Hit head. Headache. FINDINGS: There is no identified skull fracture. There is mild cerebral volume loss. There is no mass effect or midline shift. There is no acute intracranial hemorrhage. There is no abnormal extra-axial fluid collection. The visualized portions of the paranasal sinuses, mastoid air cells and middle ears are well aerated. IMPRESSION: 1. No identified acute intracranial abnormality. 2. Mild cerebral volume loss. Dictated on workstation # [id number] Departure Impression Primary Impression: Fall Qualified Codes: W19.XXXA - Unspecified fall, initial encounter Additional Impressions: Hip pain Back pain Qualified Codes: M54.50 - Low back pain, unspecified Disposition: 01 HOME, SELF-CARE Condition: Stable Departure-Patient Inst. Decision time for Depature: 18:45 Referrals: SELFCHADD MD (PCP/Family) Primary Care Physician Patient Instructions: Preventing Falls ED Add. Discharge Instructions: The CT of your head, back, and pelvis including her hips looks good with nothing broken. Take Tylenol as needed for pain. TONIE HERNANDEZ MD Feb 17, 2022 17:40
[2022-02-17] MEDS ORDERED: ACETAMINOPHEN 500 MG TAB (TYLENOL) PO ONE (17:45)
[2022-02-17 18:24] LABS: BILIRUBIN,URINE NEGATIVE (NEGATIVE); CLARITY,URINE CLEAR; COLOR,URINE YELLOW; GLUCOSE, URINE (UA) NEGATIVE (NEGATIVE); KETONES,URINE NEGATIVE (NEGATIVE); LEUKOCYTE ESTERASE ,URINE NEGATIVE (NEGATIVE); NITRITE,URINE NEGATIVE (NEGATIVE); PROTEIN,URINE 1+ (NEGATIVE)
--- NOTE | 2022-02-17 18:28 | Diagnostic Imaging Report ---
Procedure: CT pelvis without contrast. Technique: Multiple contiguous axial images were obtained through the pelvis without the use of intravenous contrast. Sagittal and coronal reformations were performed. Auto Exposure Controls were utilized during the CT exam to meet ALARA standards for radiation dose reduction. Date: February 17, 2022. Indication: 86-year-old female, fall. Bilateral hip pain. Comparison: None. Findings: There is no identified acute fracture. The hips are not dislocated. There is no joint space loss of either hip. There is transitional lumbosacral anatomy. There are multilevel degenerative changes of the lumbar spine. There is no identified free fluid in the pelvis. There is no identified focal fluid collection. There is diverticulosis without evidence of acute diverticulitis. Impression: No identified acute bony abnormality of the pelvis. Dictated by: Dictated on workstation # [id number]
--- NOTE | 2022-02-17 18:28 | Diagnostic Imaging Report ---
Procedure: CT lumbar spine without contrast. Technique: Multiple contiguous axial images were obtained through the lumbar spine without the use of intravenous contrast. Sagittal and coronal reformations were then performed. Auto Exposure Controls were utilized during the CT exam to meet ALARA standards for radiation dose reduction. Date: February 17, 2022. Indication: 86-year-old female, fall out of wheelchair. Low back pain. Comparison: CT thoracic and lumbar spine January 01, 2019. Findings: There is no identified acute fracture of the lumbar spine. There is mild disc loss at L4-L5. There is moderate to severe disc height loss at L2-L3. CT is limited for assessment of disc pathology as well as additional nonbony causes of pathology in the spinal canal. The sacroiliac joints are unremarkable in appearance. There are bilateral facet degenerative changes at L4-L5 and L5-S1. There are atherosclerotic calcifications. There is diverticulosis without evidence of acute diverticulitis. Impression: 1. No identified acute fracture of the lumbar spine. 2. Multilevel degenerative changes of the lumbar spine. Dictated by: Dictated on workstation # [id number]
--- NOTE | 2022-02-17 18:31 | Diagnostic Imaging Report ---
PROCEDURE: CT head without contrast. TECHNIQUE: Multiple contiguous axial images were obtained through the brain without the use of intravenous contrast. Auto Exposure Controls were utilized during the CT exam to meet ALARA standards for radiation dose reduction. DATE: February 17, 2022. COMPARISON: CT head and cervical spine January 01, 2019. INDICATION: 86-year-old female, fall. Hit head. Headache. FINDINGS: There is no identified skull fracture. There is mild cerebral volume loss. There is no mass effect or midline shift. There is no acute intracranial hemorrhage. There is no abnormal extra-axial fluid collection. The visualized portions of the paranasal sinuses, mastoid air cells and middle ears are well aerated. IMPRESSION: 1. No identified acute intracranial abnormality. 2. Mild cerebral volume loss. Dictated by: Dictated on workstation # [id number]
[2022-02-17 18:41] LABS: BACTERIA,URINE NEGATIVE /HPF; RBC,URINE 0-2 /HPF; SQUAMOUS EPITHELIAL CELL,UR RARE /HPF; WBC,URINE RARE /HPF
[2022-02-17 18:55] VITALS: BP 166/95
== END 2022-02-17 19:16 | disposition home or self-care (01) ==
LOC: EDUNIT# 17:32 → ER FS 17:33
DX: M25.552 Pain in left hip (principal); M54.50 Low back pain, unspecified; R51.9 Headache, unspecified; W05.0XXA Fall from non-moving wheelchair, initial encounter; W22.8XXA Striking against or struck by other objects, initial encounter
CPT/HCPCS: 51702; 70450; 72131; 72192; 81000

== ENCOUNTER 2022-05-16 12:30 | Emergency (ER) | payer MEDICARE, MEDICAID ==
--- NOTE | 2022-05-16 13:22 | ED Fall/Injury ---
General Chief Complaint: Trauma-Non Activation Stated Complaint: FALL; HEAD INJ Source: patient, family, EMS Exam Limitations: no limitations History of Present Illness Date Seen by Provider: May 16, 2022 Time Seen by Provider: 12:32 Initial Comments 86-year-old female with past medical history most notable for dementia and heart failure presenting from the senior living via EMS after she was standing, lost her footing and fell backwards hitting the back of her head. Did not pass out, remembers all events. Having some mid back pain and some mild head discomfort with a knot on her head. Does not take any blood thinners. Denies any weakness, numbness, chest pain, shortness of breath, or any other concerns. Mo ving all extremities without difficulty and having no extremity pain. Allergies and Home Medications Allergies Coded Allergies: No Known Drug Allergies (Unverified , 01/01/19) Patient Home Medication List Home Medication List Reviewed: Yes Carvedilol (Coreg) 25 Mg Tab, 25 MG PO BID Prescribed by: MARYSE NELSON on 02/17/20 1131 Cinnamon Bark (Cinnamon) 500 Mg Capsule, 500 MG PO HS, (Reported) Entered as Reported by: DEUCE MIXON on 02/16/20 1157 Citalopram Hydrobromide (Citalopram HBr) 10 Mg Tablet, 10 MG PO DAILY, (Reported) Entered as Reported by: DEUCE IMXON on 02/16/20 1145 Colostrum, Bovine (Colostrum) Unknown Strength Capsule, Unknown Dose PO HS, (Reported) Entered as Reported by: DEUCE MIXON on 02/16/20 1158 Donepezil HCl (Donepezil HCl) 5 Mg Tablet, 5 MG PO HS, (Reported) Entered as Reported by: DEUCE MIXON on 02/16/20 1145 Ferrous Gluconate (Ferrous Gluconate) 324 Mg Tablet, 324 MG PO UD, (Reported) Entered as Reported by: DEUCE MIXON on 02/16/20 1157 Glipizide (Glipizide) 5 Mg Tablet, 5 MG PO DAILY, (Reported) Entered as Reported by: DEUCE MIXON on 02/16/20 1145 Levothyroxine Sodium (Levothyroxine Sodium) 125 Mcg Tablet, 125 MCG PO DAILY, (Reported) Entered as Reported by: DEUCE MIXON on 02/16/20 1145 Quetiapine Fumarate (Quetiapine Fumarate) 25 Mg Tablet, 25 MG PO HS, (Reported) Entered as Reported by: DEUCE Rodriguez MIXON on 02/16/20 1145 Rosuvastatin Calcium (Rosuvastatin Calcium) 10 Mg Tablet, 10 MG PO DAILY, (Reported) Entered as Reported by: DEUCE MIXON on 02/16/20 1145 Review of Systems Review of Systems Constitutional: No fever Eyes: No Symptoms Reported Ears, Nose, Mouth, Throat: no symptoms reported Respiratory: no symptoms reported Cardiovascular: no symptoms reported Gastrointestinal: no symptoms reported Genitourinary: no symptoms reported Musculoskeletal: see HPI Skin: no symptoms reported Psychiatric/Neurological: No Symptoms Reported Past Ntfsutu-Coppmo-Amffss Hx Patient Social History Tobacco Use?: No Use of E-Cig and/or Vaping dev: No Substance use?: No Alcohol Use?: No Pt feels they are or have been: No Immunizations Up To Date First/Initial COVID19 Vaccinat: Unknown Second COVID19 Vaccination Sukumar: Unknown Third COVID19 Vaccination Date: Unknown Seasonal Allergies Seasonal Allergies: No Past Medical History Surgery/Hospitalization HX: HTN; Hypothyroidism; chronic back pain; Hyperlipidemia; Amnesia; DM type 2; Heart failure; Depression; Demenia. Surgeries: Yes Defibrillator, Pacemaker Respiratory: No Cardiac: Yes Chronic Edema/Swelling Neurological: Yes Dementia Genitourinary: Yes (CKD stage 3) Kidney Stones, Renal Failure Gastrointestinal: Yes Diverticulosis Musculoskeletal: Yes (osteoarthritis, DJD right hip) Endocrine: Yes Diabetes, Non-Insulin dep HEENT: No Cancer: No Psychosocial: No Integumentary: No Physical Exam Vital Signs Vital Signs - First Documented 05/16/22 12:34 Temp 35.4 Pulse 66 Resp 18 B/P (MAP) 123/105 (111) Pulse Ox 95 O2 Delivery Room Air Capillary Refill : Height, Weight, BMI Height: '" Weight: lbs. oz. kg; 44.10 BMI Method: General Appearance: WD/WN, no apparent distress HEENT: PERRL/EOMI, normal ENT inspection, pharynx normal, other (No open wound to the back of her head but there is a small hematoma in her occiput region) Neck: non-tender, full range of motion, supple, normal inspection Cardiovascular: regular rate, rhythm, no murmur Respiratory: chest non-tender, lungs clear, normal breath sounds, no respiratory distress, no accessory muscle use Gastrointestinal: normal bowel sounds, non tender, soft; No distended, No guarding, No rebound Back: normal inspection, no CVA tenderness, other (Midthoracic) Extremities: normal range of motion, non-tender, normal inspection, no calf tenderness, normal capillary refill, pedal edema Neurologic/Psychiatric: academic specialist II-XII nml as tested, no motor/sensory deficits, alert, normal mood/affect, oriented x 3 Skin: normal color, warm/dry Progress/Results/Core Measures Results/Orders My Orders Orders - TONIE HERNANDEZ MD Ct Head/Cervical Spine Wo (05/16/22 13:05) Ct Thoracic/Lumbar Spine Wo (05/16/22 13:05) Acetaminophen Tablet (Tylenol Tablet) (05/16/22 13:45) Medications Given in ED Current Medications Medications Dose Ordered Sig/Kaylynn Route Start Time Stop Time Status Last Admin Dose Admin Acetaminophen 1,000 mg ONCE ONCE PO 05/16/22 13:45 05/16/22 13:46 DC 05/16/22 13:57 1,000 MG Vital Signs/I&O 05/16/22 12:34 Temp 35.4 Pulse 66 Resp 18 B/P (MAP) 123/105 (111) Pulse Ox 95 O2 Delivery Room Air Progress Progress Note : Progress Note 86-year-old female presenting after losing her footing and falling backwards. ABCs were intact, GCS 15, vital stable on presentation. Has some mid thoracic tenderness with no weakness or numbness. Hematoma to the back of her head. CT head, cervical spine, thoracic spine, and lumbar spine ordered. She has some chronic spine changes but no acute fracture. She does have a subacute to chronic right clavicle fracture that was incidentally found. She is not tender in this area and has normal range of motion of her right upper extremity. Given Tylenol for pain control. I believe she is otherwise stable for discharge with outpatient follow-up. She was sent home with strict return precautions Diagnostic Imaging Diagonstic Imaging: CT (head, c/t/l spine) Comments NAME: ONIEL LONGORIA MED REC#: [id number] PT STATUS: REG ER : 1935 PHYSICIAN: TONIE HERNANDEZ MD ADMIT DATE: 05/16/22/ER FS Draft Date of Exam:05/16/22 CT THORACIC/LUMBAR SPINE WO PROCEDURE: CT thoracic and lumbar spine without contrast. TECHNIQUE: Multiple contiguous axial images were obtained through the thoracic and lumbar spine without the use of intravenous contrast. Sagittal and coronal reformations were then performed. All CT scans use one or more of the following dose optimizing techniques: automated exposure control, MA and/or KvP adjustment based on a patient size and exam type, or iterative reconstruction. INDICATION: Back pain after a fall. COMPARISON: CT thoracolumbar spine performed on 01/01/2019 as well as a more recent lumbar CT of 02/17/2022. FINDINGS: THORACIC SPINE: Note is made of subacute appearing but unhealed comminuted fractures of the medial third of the right clavicle without clavicular manubrial dislocation. The thoracic stature is unremarkable. Bridging anterior osteophytes or syndesmophytes are noted. No pathological disc space widening. No syndesmophyte disruption. No vertebral body or posterior element fracture. No listhesis. No splaying of the posterior elements. No paravertebral hemorrhage. Chronic degenerative changes are stable. No paraspinal or epidural mass, fluid collection, or hematoma is found. The visualized posterior rib segments appear intact. The heart is enlarged. There are coronary and aortic atherosclerotic vascular calcifications. There is a small hiatal hernia. LUMBAR SPINE: The lumbar vertebral statures and their alignment are stable. There are degenerative changes to the discs, endplates, and facets throughout, chronic. No fracture or paraspinal hemorrhage. No listhesis. The neural arches and transverse processes appear intact. At L5-S1, there is severe canal stenosis with facet arthrosis and bulky ligament flava thickening with disc bulge and endplate osteophytes, chronic. There is moderate right and severe left foraminal narrowing, chronic. Visualized portions of the sacrum and SI joints are nonacute. There are aortoiliac atherosclerotic vascular calcifications without aneurysm demonstrated. IMPRESSION: 1. Subacute appearing medial third right clavicular fracture is comminuted and nondisplaced. 2. No thoracolumbar fracture or traumatic malalignment. Stable chronic degenerative changes at the L5-S1 level resulting in severe canal and substantial foraminal stenoses as detailed above. 3. Cardiomegaly and vascular congestion with coronary and aortic atherosclerotic vascular calcifications and a retrocardiac hiatal hernia. Dictated on workstation # [id number] Dict: 05/16/22 1343 Trans: 05/16/22 1359 [id number] Interpreted by: GEORGIE WALLIS Electronically signed by: [facility]. [place], [place] NAME: ONIEL LONGORIA [facility] REC#: [id number] PT STATUS: REG ER : 1935 PHYSICIAN: TONIE HERNANDEZ MD ADMIT DATE: 05/16/22/ER FS Draft Date of Exam:05/16/22 CT HEAD/CERVICAL SPINE WO PROCEDURE: CT head and CT cervical spine without contrast. TECHNIQUE: Multiple contiguous axial images were obtained through the brain and cervical spine without the use of intravenous contrast. Sagittal and coronal reformations through the cervical spine were then performed. Auto Exposure Controls were utilized during the CT exam to meet ALARA standards for radiation dose reduction. INDICATION: Head and cervical trauma. COMPARISON: CT head from 02/17/2022. FINDINGS: Head: No hyperdense hemorrhage or space-occupying mass. No hydrocephalus or midline shift. Mejia-white matter differentiation is well preserved. Stable triangular focus of hypoattenuation in the right cerebellar hemisphere, likely due to old lacunar infarct. Periventricular hypoattenuation is similar and indicates chronic microvascular ischemic change. Basilar cisterns are patent. No focal scalp swelling. No skull fracture. The paranasal sinuses and mastoid air cells are clear. Cervical spine: No acute fracture or traumatic malalignment. No high-grade spinal canal narrowing. Airway is patent. No cervical lymphadenopathy. [id number]-ul-idfbkax incompletely healed fracture in the medial head of the right clavicle. IMPRESSION: 1. No acute intracranial process or skull fracture. 2. No acute fracture or traumatic malalignment of the cervical spine. 3. Zuvnpbgg-ys-jhwgkvi incompletely healed fracture in the medial head of the right clavicle. Dictated on workstation # [id number] Dict: 05/16/22 1339 Trans: 05/16/22 1358 [id number] Interpreted by: CARLOS TORRES MD Electronically signed by: Departure Impression Primary Impression: Fall Qualified Codes: W19.XXXA - Unspecified fall, initial encounter Additional Impression: Fracture, clavicle Qualified Codes: S42.024A - Nondisplaced fracture of shaft of right clavicle, initial encounter for closed fracture Disposition: 01 HOME, SELF-CARE Condition: Stable Departure-Patient Inst. Decision time for Depature: 14:04 Referrals: SELFCHADD MD (PCP) Primary Care Physician KM LASSITER Patient Instructions: Preventing Falls ED Add. Discharge Instructions: You do have an old collarbone fracture on the right which is slowly healing. Take Tylenol as needed for pain. Nothing broken in your back, neck, and no findings on your CT of your head including no bleeding internally. Follow-up with Ethan Lassiter here in town if you have issues with the collarbone, otherwise it should heal on its own. TONIE HERNANDEZ MD May 16, 2022 13:22
[2022-05-16] MEDS ORDERED: ACETAMINOPHEN 500 MG TAB (TYLENOL) PO ONE (13:45)
--- NOTE | 2022-05-16 13:58 | Diagnostic Imaging Report ---
PROCEDURE: CT head and CT cervical spine without contrast. TECHNIQUE: Multiple contiguous axial images were obtained through the brain and cervical spine without the use of intravenous contrast. Sagittal and coronal reformations through the cervical spine were then performed. Auto Exposure Controls were utilized during the CT exam to meet ALARA standards for radiation dose reduction. INDICATION: Head and cervical trauma. COMPARISON: CT head from 02/17/2022. FINDINGS: Head: No hyperdense hemorrhage or space-occupying mass. No hydrocephalus or midline shift. Mejia-white matter differentiation is well preserved. Stable triangular focus of hypoattenuation in the right cerebellar hemisphere, likely due to old lacunar infarct. Periventricular hypoattenuation is similar and indicates chronic microvascular ischemic change. Basilar cisterns are patent. No focal scalp swelling. No skull fracture. The paranasal sinuses and mastoid air cells are clear. Cervical spine: No acute fracture or traumatic malalignment. No high-grade spinal canal narrowing. Airway is patent. No cervical lymphadenopathy. Skhigeha-ee-gejvqiy incompletely healed fracture in the medial head of the right clavicle. IMPRESSION: 1. No acute intracranial process or skull fracture. 2. No acute fracture or traumatic malalignment of the cervical spine. 3. Gmcgrxvx-fm-dihyokq incompletely healed fracture in the medial head of the right clavicle. Dictated by: Dictated on workstation # [id number]
--- NOTE | 2022-05-16 14:00 | Diagnostic Imaging Report ---
PROCEDURE: CT thoracic and lumbar spine without contrast. TECHNIQUE: Multiple contiguous axial images were obtained through the thoracic and lumbar spine without the use of intravenous contrast. Sagittal and coronal reformations were then performed. All CT scans use one or more of the following dose optimizing techniques: automated exposure control, MA and/or KvP adjustment based on a patient size and exam type, or iterative reconstruction. INDICATION: Back pain after a fall. COMPARISON: CT thoracolumbar spine performed on 01/01/2019 as well as a more recent lumbar CT of 02/17/2022. FINDINGS: THORACIC SPINE: Note is made of subacute appearing but unhealed comminuted fractures of the medial third of the right clavicle without clavicular manubrial dislocation. The thoracic stature is unremarkable. Bridging anterior osteophytes or syndesmophytes are noted. No pathological disc space widening. No syndesmophyte disruption. No vertebral body or posterior element fracture. No listhesis. No splaying of the posterior elements. No paravertebral hemorrhage. Chronic degenerative changes are stable. No paraspinal or epidural mass, fluid collection, or hematoma is found. The visualized posterior rib segments appear intact. The heart is enlarged. There are coronary and aortic atherosclerotic vascular calcifications. There is a small hiatal hernia. LUMBAR SPINE: The lumbar vertebral statures and their alignment are stable. There are degenerative changes to the discs, endplates, and facets throughout, chronic. No fracture or paraspinal hemorrhage. No listhesis. The neural arches and transverse processes appear intact. At L5-S1, there is severe canal stenosis with facet arthrosis and bulky ligament flava thickening with disc bulge and endplate osteophytes, chronic. There is moderate right and severe left foraminal narrowing, chronic. Visualized portions of the sacrum and SI joints are nonacute. There are aortoiliac atherosclerotic vascular calcifications without aneurysm demonstrated. IMPRESSION: 1. Subacute appearing medial third right clavicular fracture is comminuted and nondisplaced. 2. No thoracolumbar fracture or traumatic malalignment. Stable chronic degenerative changes at the L5-S1 level resulting in severe canal and substantial foraminal stenoses as detailed above. 3. Cardiomegaly and vascular congestion with coronary and aortic atherosclerotic vascular calcifications and a retrocardiac hiatal hernia. Dictated by: Dictated on workstation # [id number]
[2022-05-16 14:24] VITALS: BP 126/94
== END 2022-05-16 14:44 | disposition home or self-care (01) ==
LOC: EDUNIT# 12:30 → ER FS 12:31
DX: S42.017A Nondisplaced fracture of sternal end of right clavicle, initial encounter for closed fracture (principal); S00.03XA Contusion of scalp, initial encounter; M54.6 Pain in thoracic spine; R40.2412 Glasgow coma scale score 13-15, at arrival to emergency department; W01.198A Fall on same level from slipping, tripping and stumbling with subsequent striking against other object, initial encounter
CPT/HCPCS: 70450; 72125; 72128; 72131